=== PATIENT | female | born 1960 | race African-American/Black ===

== ENCOUNTER 2017-01-06 18:03 | Inpatient (IN) | payer MEDICAID, OTHER ==
[~2017-01-06] VITALS: Ht 180.3 cm; Wt 176.9 kg
[~2017-01-06 18:03] MED LIST: ALBUT2 CONTNEB; ASPI325T2 PO; CYCL-289 PO; FURO-145 PO; HYDR1LIQ PO; ISOS30TA28 PO; LEVA0.31 IH; LISI10TA5 PO; MONT10TA22 PO; PANT40SU PO; SIMV20TA2 PO; SOTA80TA26 PO; ZOLP10TA2 PO
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
[2017-01-06] MEDS ORDERED: IV NS 0.9% 1,000 ML ONE ×2 (18:56→19:35)
[2017-01-06] MEDS ORDERED: ONDANSETRON HCL/PF 4 MG/2 ML VIAL ONE (18:56)
[2017-01-06] MEDS ORDERED: IV SET PRIMARY 1 EA INFUS.SET MC ONE ×2 (18:56→19:10)
[2017-01-06] MEDS ORDERED: MORPHINE SULFATE INJ 4 MG/ML DISP.SYRIN ONE (18:56)
[2017-01-06] MEDS ORDERED: VANCOMYCIN 1 GM in IV D5W 250 ML IV ONE (19:00)
[2017-01-06] MEDS ORDERED: IV NS 0.9% 1,000 ML BAG IV ONE ×2 (19:00)
[2017-01-06] MEDS ORDERED: CEFEPIME 1 GM in IV D5W 50 ML IV ONE (19:00)
[2017-01-06] MEDS ORDERED: ONDANSETRON HCL/PF 4 MG/2 ML VIAL IVP ONE (19:00)
[2017-01-06] MEDS ORDERED: BLOOD SUGAR DIAGNOSTIC 1 EACH STRIP IN ONE (19:00)
[2017-01-06] MEDS ORDERED: MORPHINE SULFATE INJ 2 MG/ML DISP.SYRIN IV ONE (19:00)
--- NOTE | 2017-01-06 19:00 | NUR ---
NEW IV STARTED RIGHT HAND, 20 GAUGE.
[2017-01-06 19:03] LABS: BASOPHILS % (AUTO) 0.5 % (0.0-2.0); EOSINOPHILS # (AUTO) 0.2 /CMM (0.0-0.7); EOSINOPHILS % (AUTO) 3.7 % (0.0-6.0); HEMATOCRIT 38 % (33-45); HEMOGLOBIN 11.8 g/dL (11.5-14.8); LYMPHOCYTES # (AUTO) 1.2 /CMM (0.8-4.8); MEAN CORPUSCULAR HEMOGLOBIN 26 PG (26.0-33.0); MEAN CORPUSCULAR HGB CONC 31 g/dl (31.0-36.0); MEAN CORPUSCULAR VOLUME 84 fL (82-100); MONOCYTES # (AUTO) 0.7 /CMM (0.1-1.30); MONOCYTES % (AUTO) 10.4 % (2.0-12.0); NEUTROPHILS # (AUTO) 4.6 /CMM (1.8-8.9); NEUTROPHILS % (AUTO) 67.4 % (43.0-81.0); PLATELET COUNT (AUTO) 227 /CMM (150-450); RDW COEFFICIENT OF VARIATION 14.4 (11.5-15.0); RED BLOOD CELL COUNT(AUTO) 4.49 MIL/uL (4.0-5.2); WHITE BLOOD COUNT (AUTO) 6.7 K/uL (4.3-11.0)
[2017-01-06 19:14] LABS: CALCIUM, SERUM 9.9 mg/dL (8.5-10.1); CARBON DIOXIDE 29 mmol/L (21-32); CHLORIDE 103 mmol/L (98-107); CREATININE 1.8 mg/dL (0.6-1.3); GLUCOSE 146 mg/dL (74-106); POTASSIUM 4.5 mmol/L (3.5-5.1); SODIUM SERUM 140 mmol/L (136-145); UREA NITROGEN, BLOOD 25 mg/dL (7-18)
--- NOTE | 2017-01-06 19:15 | NUR ---
MEDICATED PATIENT PER MD ORDERS.
[2017-01-06] MEDS ORDERED: IV SET PRIMARY PUMP SET 1 EA INFUS.SET MC ONE (19:17)
[2017-01-06 19:18] LABS: INR 0.94 (0.87-1.13); PROTHROMBIN TIME 9.8 SECS (9.5-12.7)
[2017-01-06 19:20] LABS: ALANINE AMINOTRANSFERASE 21 U/L (12-78); ALBUMIN 3.5 g/dL (3.4-5.0); ALKALINE PHOSPHATASE 83 U/L (46-116); ASPARTATE AMINOTRANSFERASE 34 U/L (15-37); BILIRUBIN,DIRECT 0.1 mg/dL (0.0-0.2); BILIRUBIN,TOTAL 0.5 mg/dL (0.2-1.0); TOTAL PROTEIN, SERUM 7.9 g/dL (6.4-8.2)
[2017-01-06 19:21] LABS: TROPONIN I < 0.017 ng/mL (0.00-0.056)
--- NOTE | 2017-01-06 20:21 | NUR ---
CALLED 'S OFFICE, HE IS ON VACATION, GIVE PT TO [facility] PER HIS ANSWERING SERVICE
--- NOTE | 2017-01-06 20:29 | NUR ---
DR.RUTHERFORD MARY ALICE A OPERATOR
[2017-01-06] MEDS ORDERED: HYDROCODONE/APAP 5/325MG 1 EACH TABLET ONE (20:56)
[2017-01-06] MEDS ORDERED: HYDROCODONE/APAP 5/325MG 1 EACH TABLET PO ONE (21:00)
--- NOTE | 2017-01-06 21:11 | NUR ---
REPORT GIVEN TO YASIR TO FOR BED 201 M/S
--- NOTE | 2017-01-06 21:33 | NUR ---
PT TRANSFERED TO M/S 201 VIA STRETCHER IN STABLE CONDITION.
[2017-01-06 21:35] VITALS: BP 130/82
[2017-01-06 22:00] VITALS: BP 130/82
[2017-01-06] MEDS ORDERED: HYDROCODONE/APAP 5/325MG 1 EACH TABLET PO PRN (22:00)
[2017-01-06] MEDS ORDERED: ZOLPIDEM TARTRATE 5 MG TABLET PO PRN (22:00)
[2017-01-06] MEDS ORDERED: ACETAMINOPHEN 325 MG TABLET PO PRN (22:00)
[2017-01-06] MEDS ORDERED: ALBUTEROL FS 2.5 MG/3 ML VIAL.NEB CONTNEB PRN (22:00)
[2017-01-06] MEDS ORDERED: MAGNESIUM HYDROXIDE 30 ML UDC PO PRN (22:00)
[2017-01-06] MEDS ORDERED: MAG HYDROX/AL HYDROX/SIMETH 30 ML UDC PO PRN (22:00)
--- NOTE | 2017-01-06 22:00 | NUR ---
RN NOTE; ADMITTED A 56Y/O, F, A, OX3. BREATHING EVENLY. VS:WNL. AFEBRILE. ON O2 AT 2LPM VIA NC TOLERATED WELL. SKIN WARM AND DRY. W/ MULTIPLE SKIN LESIONS ON THE ARM AND ABD. TO NOTIFY WOUND CASH MANAGER. W/ C/O MILD PAIN OR LLE AND LUE. MEDICAL INFO WAS PROVIDED BY THE PT HOWEVER NEEDED A LOT OF REDIRECTION . SKIN CHECK WAS DONE PARTIALLY SINCE PT REFUSED AND NOT COOPERATIVE. PT ALSO REFUSED PICTURE TAKING ON SOME OF THE SKIN PROBLEMS. NEEDS ATTENDED. ASSISTED W/ ADLS. CALL LIGHT WITHIN REACH. WILL CONT TO MONITOR AND WILL F/U W/ MD's ORDERS.
[2017-01-06] MEDS ORDERED: ENOXAPARIN SODIUM 40 MG/0.4 ML DISP.SYRIN SQ ONE (22:39)
[2017-01-06] MEDS ORDERED: ZOLPIDEM TARTRATE 10 MG TABLET ONE (22:40)
[2017-01-06] MEDS: ENOXAPARIN SODIUM 40 MG/0.4 ML DISP.SYRIN SQ SCH (22:45)
[2017-01-06] MEDS: ZOLPIDEM TARTRATE 10 MG TABLET PO PRN (22:45)
--- NOTE | 2017-01-06 22:45 | NUR ---
WISAMIEN GIVEN ORDERED FOR C/O INSOMNIA. WILL CONT TO MONITOR.
--- NOTE | 2017-01-07 00:30 | NUR ---
pt was seen and examined by dr. Dickson.
[2017-01-07] MEDS ORDERED: HYDROMORPHONE INJ 2 MG/ML DISP.SYRIN ONE (05:21)
[2017-01-07] MEDS: HYDROMORPHONE INJ 2 MG/ML DISP.SYRIN IV PRN ×3 (05:26→20:17)
--- NOTE | 2017-01-07 05:30 | NUR ---
DILAUDID GIVEN FOR C/O SEVERE BLEs PAIN. PT W/ CONSTANTLY PICKING ON HER OLS SX SITE ON THE R KNEE. PT WAS EDUCATED TO NOT TO TOUCH THE AREA AND LET IT HEAL AND AREA WAS COVERED W/ DRY DRESSING TO PREVENT FURTHER MANIPULATION OF THE AREA. WILL WAIT FOR WOUND CARE CONSULT.
--- NOTE | 2017-01-07 06:08 | NUR ---
RN NOTE; PT SITTING AT THE EDGE OF THE BED. BREATHING EVENLY. NO SOB. NO DISTRESS. SKIN WARM AND DRY. REPORTED RELIEF OF PAIN W/ DILAUDID. NO ACUTE EVENT SINCE PT WAS ADMITTED ON THE FLOOR. NEEDS ATTENDED. CALL LIGHT WITHIN REACH. WILL CONT TO MONITOR AND WILL ENDORSE TO AM SHIFT FOR HENRY.
--- NOTE | 2017-01-07 07:00 | NUR ---
MS RN OPENING RECEIVED PATIENT A/OX4 DENIES SOB, DIFFICULTY BREATHING AND CONSTANT PAIN IN LEGS WHICH PRN MEDICATIONS HELPING. PATIENT STATES SHE WANTS MEDICATIONS FOR SKIN, NOTIFIED WOUND EVAL RN WILL BE BY TODAY TO RECCOMMEND TREATMENT. PATIENT APPEARS STABLE AT THIS TIME. CALL LIGHT IN REACH, BED LOWERED AND LOCKED, RAILS UPX3 FOR SAFETY AND WILL ROUND Q2H OR LESS PER NEEDS.
[2017-01-07 07:36] LABS: BASOPHILS % (AUTO) 0.2 % (0.0-2.0); EOSINOPHILS # (AUTO) 0.2 /CMM (0.0-0.7); EOSINOPHILS % (AUTO) 4.4 % (0.0-6.0); HEMATOCRIT 33 % (33-45); HEMOGLOBIN 10.7 g/dL (11.5-14.8); LYMPHOCYTES # (AUTO) 1.2 /CMM (0.8-4.8); LYMPHOCYTES % (AUTO) 23.7 % (20.0-44.0); MEAN CORPUSCULAR HEMOGLOBIN 27 PG (26.0-33.0); MEAN CORPUSCULAR HGB CONC 32 g/dl (31.0-36.0); MEAN CORPUSCULAR VOLUME 84 fL (82-100); MONOCYTES # (AUTO) 0.6 /CMM (0.1-1.30); MONOCYTES % (AUTO) 12.9 % (2.0-12.0); NEUTROPHILS # (AUTO) 2.9 /CMM (1.8-8.9); NEUTROPHILS % (AUTO) 58.8 % (43.0-81.0); PLATELET COUNT (AUTO) 201 /CMM (150-450); RDW COEFFICIENT OF VARIATION 15.4 (11.5-15.0); RED BLOOD CELL COUNT(AUTO) 3.99 MIL/uL (4.0-5.2); WHITE BLOOD COUNT (AUTO) 4.9 K/uL (4.3-11.0)
[2017-01-07 07:58] LABS: CREATININE 1.3 mg/dL (0.6-1.3); MAGNESIUM 1.7 mg/dL (1.8-2.4); PHOSPHORUS 4.2 mg/dL (2.5-4.9); POTASSIUM 4.2 mmol/L (3.5-5.1)
[2017-01-07 08:00] VITALS: BP 114/63
[2017-01-07] MEDS: LISINOPRIL (10MG) 10 MG TABLET PO SCH (08:08)
[2017-01-07] MEDS: ISOSORBIDE MONONITRATE (30MG) 30 MG TAB.SR.24H PO SCH (08:08)
[2017-01-07] MEDS: SOTALOL HCL 80 MG TABLET PO SCH (08:08)
[2017-01-07] MEDS: FUROSEMIDE 20 MG TABLET PO SCH (08:37)
[2017-01-07] MEDS: ASPIRIN 325 MG TABLET PO SCH (08:38)
[2017-01-07] MEDS: PANTOPRAZOLE 40 MG TABLET.DR PO SCH (08:38)
[2017-01-07] MEDS: SIMVASTATIN 20 MG TABLET PO SCH (08:38)
[2017-01-07] MEDS: CYCLOBENZAPRINE 10 MG TABLET PO SCH (08:38)
[2017-01-07] MEDS: MONTELUKAST SODIUM (10MG) 10 MG TABLET PO SCH (08:38)
[2017-01-07] MEDS ORDERED: ZOLPIDEM TARTRATE 10 MG TABLET PO SCH (09:00)
[2017-01-07] MEDS ORDERED: PANTOPRAZOLE 40 MG/PACK PACK PO SCH (09:00)
--- NOTE | 2017-01-07 10:28 | NUR ---
WOUND CARE CONSULT: PT IS AMBULATORY AND CONTINENT. PT PRESENTS WITH LEFT ARM ESCHARS AND LEFT KNEE SCAR WHICH HAS OPEN WOUND, AND GLUTEAL CREASE EXCORIATION, PRESENT ON ADMISSION. PT IS MORBIDLY OBESE. RECOMMEND SURGICAL CONSULT. ALL SKIN AND WOUND RECOMMENDATIONS DISCUSSED WITH NURSING STAFF. MD IN AGREEMENT WITH PLAN OF CARE.
--- NOTE | 2017-01-07 10:30 | NUR ---
MS RN NOTES PATIENT PULLED OUT IV. SHE STATED IT WAS "BUGGING HER".. PRESSURE AND DRESSING APPLIED NO BLEEDING. EDUCATED PATIENT AGAIN TO NOT PULL AT IV'S. PASSIVE LISTENING
--- NOTE | 2017-01-07 10:33 | NUR ---
MS RN NOTES CALLED [facility] TO HELP RAISE OVER TOILET FOR PATIENT. PATIENT SITTING UP IN CHAIR AT THIS TIME
[2017-01-07] MEDS ORDERED: NEOMY SULF/BACITRAC ZN/POLY 15 GM TUBE TP SCH (11:00)
--- NOTE | 2017-01-07 11:00 | NUR ---
MS COOLEY NOTES TOOK WOUND CULTURE ON LEFT KNEE. READY FOR LAB HIGHER EDUCATION ADMINISTRATOR Addendum: 01/07/17 at 1101 by KIMMIE DORADO RN PATIENT AWARE NEEDING URINE SAMPLE.
--- NOTE | 2017-01-07 11:10 | NUR ---
RN NOTES DR BHARGAVI MOREL AT BEDSIDE. NOTIFIED PATIENT IS DIABETIC. ORDER ACHS MILD SLIDING SCALE. AND OK TO RESUME PO DIABETIC MEDICATIONS TAKING AT HOME. WILL F.U WITH PATIENT Addendum: 01/07/17 at 1116 by KIMMIE DORADO RN PER MD ADAN TO ORDER DR AYLEEN JOSE CONSULT FOR PATIENT
--- NOTE | 2017-01-07 11:16 | NUR ---
RN NOTES MESSAGE TO DR ABBASI OFFICE TO NOTIFY OF CONSULT
--- NOTE | 2017-01-07 11:25 | NUR ---
MS RN NOTES YENI VILLATORO AT BEDSIDE FOR CONSULT
[2017-01-07] MEDS ORDERED: SITAGLIPTIN PHOSPHATE 50 MG TABLET PO SCH (11:30)
[2017-01-07] MEDS ORDERED: DEXTROSE 50%-WATER 50 ML DISP.SYRIN IV PRN (11:30)
[2017-01-07] MEDS ORDERED: SECONDARY IV SET 1 EA INFUS.SET MC ONE ×2 (11:48→16:43)
[2017-01-07] MEDS: BLOOD SUGAR DIAGNOSTIC 1 EACH STRIP IN SCH ×3 (11:49→21:09)
[2017-01-07] MEDS: Magnesium 1GM/D5W 100ML PREMIX 100 ML IV SCH ×2 (11:52→13:06)
[2017-01-07] MEDS ORDERED: IV SET PRIMARY PUMP SET 1 EA INFUS.SET MC ONE (11:53)
[2017-01-07] MEDS ORDERED: IV NS 0.9% 250 ML IV ONE (11:53)
[2017-01-07] MEDS ORDERED: FEE PK DOSING 1 MIN EA MC ONE (12:03)
[2017-01-07] MEDS: LINAGLIPTIN 5 MG TABLET PO SCH (12:04)
--- NOTE | 2017-01-07 12:17 | NUR ---
MS RN NOTES PER PATIENT SHE TAKES PROZAC 40MG DAILY. NOTIFIED MD BURK
--- NOTE | 2017-01-07 12:17 | NUR ---
Social service consult requested by patient. Pt. was admitted to [facility] for cellulitis. [facility] met with pt. bedside. Pt. is alert and oriented x4. Pt. appeared hostile initially when speaking to SW, however became less hostile as the assessment continued. Pt. has section 8 and lives in section 8 housing located at [address] [place] [address], [address]. Pt. stated she does not want to live in that building anymore due to safety concerns and has been looking for section 8 vacancies for quite a while. SW informed pt. she can provide her a list of section 8 vacancies. Pt. was appreciative. Pt. states she is depressed and takes 40 mg of Prozac daily. SW inquired with pt. if she speaks to her son Yayo. Pt. got upset and made obscenities about her son saying he was rude to her and made obscene statements to her. Pt informed SW she has a tendency to forget stuff. Pt. denies feeling suicidal/homicidal ideations and visual/auditory hallucinations at this time. [employer] gave pt. list of current Section 8 vacancies that included vacancies in [place], [place] and [place]. [employer]N also gave pt. the website to [employer] ([employer]).
--- NOTE | 2017-01-07 12:28 | NUR ---
MS RN NOTES PER PATIENT SHE TAKES PROZAC 40MG DAILY. PER MD BHARGAVI ADAN TO ORDER MEDICATION FOR PATIENT.
[2017-01-07] MEDS: INSULIN REGULAR, HUMAN 100 UNIT/ML 3 ML VIAL SQ PRN (13:07)
[2017-01-07] MEDS: Z GUARD REMEDY 2 OZ OINT TP PRN (13:08)
[2017-01-07] MEDS: SILVER SULFADIAZINE CREAM 25 GM TUBE TP SCH (15:48)
[2017-01-07 16:00] VITALS: BP 122/73
[2017-01-07] MEDS: METFORMIN 500 MG TABLET PO SCH (16:57)
[2017-01-07] MEDS: VANCOMYCIN 1.5 GM in IV D5W 500 ML IV SCH (16:57)
--- NOTE | 2017-01-07 18:33 | NUR ---
MS RN CLOSING PATIENT STABLE NO COMPLICATIONS NO CHANGES. WOUND CARE COMPLETED ORDERED AND PRN. ALL DUE MEDS GIVEN AND ALL NEEDS MET PATIENT STATES NO NEEDS AT THIS TIME. CALL LIGHT IN REACH, BED LOWERED AND LOCKED, RAILS UPX3 FOR SAFETY. PAIN MANAGED WITH PRN MEDICATIONS AND NON PHARM MEASURMENTS. PATIENT SLEEPING EASILY AWOKEN BY NAME. WILL ENDORSE CARE TO YASIR TO FOR HENRY
--- NOTE | 2017-01-07 19:20 | NUR ---
RN NOTE; RECEIVED PT IN BED AWAKE AND ALERT, BREATHING EVENLY. NO SOB. NO DISTRESS .SKIN WARM AND DRY. NO C/O PAIN OR DISCOMFORT. NEEDS ATTENDED. CALL LIGHT WITHIN REACH, WILL CONT TO MONITOR
[2017-01-07 20:00] VITALS: BP 142/92
--- NOTE | 2017-01-07 20:20 | NUR ---
DILAUDID GIVEN FOR C/O SEVERE LLE, LUE PAIN. WILL CONT TO MONITOR
[2017-01-07] MEDS: ENOXAPARIN SODIUM 40 MG/0.4 ML DISP.SYRIN SQ SCH (21:12)
[2017-01-07] MEDS: ZOLPIDEM TARTRATE 10 MG TABLET PO PRN (21:51)
--- NOTE | 2017-01-07 21:52 | NUR ---
MICHAEL GIVEN PER PT'S REQUEST FOR C/O INSOMNIA. WILL CONT TO MONITOR
[2017-01-08] MEDS: HYDROMORPHONE INJ 2 MG/ML DISP.SYRIN IV PRN ×5 (01:49→21:30)
--- NOTE | 2017-01-08 01:50 | NUR ---
DILAUDID GIVEN FOR C/O SEVERE BLE PAIN. WILL CONT TO MONITOR
--- NOTE | 2017-01-08 06:30 | NUR ---
RN NOTE; PT IN BED AWAKE AND ALERT. BREATHING EVENLY. NO SOB. NO DISTRESS. PAIN MEDICATION GIVEN ORDERED PER PT'S REQUEST. NEEDS ATTENDED. ASSISTED W/ ADLS. CALL LIGHT WITHIN REACH. WILL CONT TO MONITOR AND WILL ENDORSE TO AM SHIFT FOR HENRY.
[2017-01-08] MEDS: BLOOD SUGAR DIAGNOSTIC 1 EACH STRIP IN SCH ×4 (06:47→21:30)
--- NOTE | 2017-01-08 06:52 | NUR ---
DILAUDID GIVEN FOR C/O SEVERE BLE PAIN. WILL CONT TO MONITOR
--- NOTE | 2017-01-08 07:00 | NUR ---
MS RN NOTES PER REPORT FROM RN PATIENT DID NOT SLEEP AT ALL, PATIENT WAS PULLING OFF BANDAGES THROUGHOUT THE NIGHT AND REOPENING SCABS. WE WENT INTO THE ROOM PATIENT HAD ALREADY REMOVED DRESSING ZULEIKA COMPLETED NOT EVEN AN HOUR PRIOR. PATIENT IS MUMBLING UNDER HER BREATH AND WHEN ASKED WHAT SHE SAID SHE SAYS "OH WELL GOTTA GET VITALS ON ME SO I CAN PEDRO" PATIENT APPEARS ANXIOUS AND DISTRACTIBLE. PSYCH CONSULT ADDED AND FACE SHEET SENT TO [employer] FOR CONSULT. CALLED [employer] THEY RECEIVED FACE SHEET AND DEMARIO VIEYRA IS MANAGER RETAIL
[2017-01-08 07:28] LABS: BASOPHILS % (AUTO) 0.6 % (0.0-2.0); EOSINOPHILS # (AUTO) 0.3 /CMM (0.0-0.7); EOSINOPHILS % (AUTO) 5.3 % (0.0-6.0); HEMATOCRIT 36 % (33-45); HEMOGLOBIN 11.5 g/dL (11.5-14.8); LYMPHOCYTES # (AUTO) 1.1 /CMM (0.8-4.8); MEAN CORPUSCULAR HEMOGLOBIN 27 PG (26.0-33.0); MEAN CORPUSCULAR HGB CONC 32 g/dl (31.0-36.0); MEAN CORPUSCULAR VOLUME 83 fL (82-100); MONOCYTES # (AUTO) 0.6 /CMM (0.1-1.30); MONOCYTES % (AUTO) 10.6 % (2.0-12.0); NEUTROPHILS # (AUTO) 3.3 /CMM (1.8-8.9); NEUTROPHILS % (AUTO) 62.5 % (43.0-81.0); PLATELET COUNT (AUTO) 215 /CMM (150-450); RDW COEFFICIENT OF VARIATION 15.2 (11.5-15.0); RED BLOOD CELL COUNT(AUTO) 4.28 MIL/uL (4.0-5.2); WHITE BLOOD COUNT (AUTO) 5.3 K/uL (4.3-11.0)
[2017-01-08 08:00] VITALS: BP 125/95
[2017-01-08] MEDS: LINAGLIPTIN 5 MG TABLET PO SCH (08:05)
[2017-01-08] MEDS: FLUOXETINE HCL 20 MG CAPSULE PO SCH (08:05)
[2017-01-08] MEDS: FUROSEMIDE 20 MG TABLET PO SCH (08:05)
[2017-01-08] MEDS: LISINOPRIL (10MG) 10 MG TABLET PO SCH (08:05)
[2017-01-08] MEDS: SOTALOL HCL 80 MG TABLET PO SCH (08:05)
[2017-01-08] MEDS: CYCLOBENZAPRINE 10 MG TABLET PO SCH (08:05)
[2017-01-08] MEDS: PANTOPRAZOLE 40 MG TABLET.DR PO SCH (08:05)
[2017-01-08] MEDS: ASPIRIN 325 MG TABLET PO SCH (08:06)
[2017-01-08] MEDS: METFORMIN 500 MG TABLET PO SCH ×2 (08:06→17:09)
[2017-01-08] MEDS: MONTELUKAST SODIUM (10MG) 10 MG TABLET PO SCH (08:06)
[2017-01-08] MEDS: SIMVASTATIN 20 MG TABLET PO SCH (08:06)
[2017-01-08] MEDS: Z GUARD REMEDY 2 OZ OINT TP PRN ×2 (08:06→11:12)
[2017-01-08] MEDS: SILVER SULFADIAZINE CREAM 25 GM TUBE TP SCH (08:09)
[2017-01-08] MEDS: ISOSORBIDE MONONITRATE (30MG) 30 MG TAB.SR.24H PO SCH (09:00)
[2017-01-08 09:03] LABS: MAGNESIUM 1.8 mg/dL (1.8-2.4)
--- NOTE | 2017-01-08 10:30 | NUR ---
MS RN NOTES URINE COLLECTED AND SENT FOR LAB HIGH SCHOOL BUSINESS TEACHER. REORDERED UA AND URINE CULTURE THEY WERE AUTO CANCELLED FROM NOT BEING COLLECTED
[2017-01-08] MEDS: INSULIN REGULAR, HUMAN 100 UNIT/ML 3 ML VIAL SQ PRN ×2 (11:11→21:54)
[2017-01-08 11:18] LABS: APPEARANCE,URINE CLEAR (CLEAR); BILIRUBIN,URINE NEGATIVE (NEGATIVE); BLOOD, URINE NEGATIVE Ery/uL (NEGATIVE); COLOR,URINE YELLOW (YELLOW); KETONES,URINE NEGATIVE (NEGATIVE); LEUKOCYTE ESTERASE ,URINE NEGATIVE (NEGATIVE); NITRITE, URINE NEGATIVE (NEGATIVE); PH,URINE 6.5 (5.0-8.0); PROTEIN,URINE NEGATIVE (NEGATIVE); UGLUCOSE NEGATIVE (NEGATIVE); UROBILINOGEN,URINE 0.2 EU/dL (0.2)
--- NOTE | 2017-01-08 13:00 | NUR ---
MS RN NOTES DR HANKS AT BEDSIDE
[2017-01-08] MEDS ORDERED: DULOXETINE HCL 30 MG CAPSULE.DR PO SCH (13:30)
[2017-01-08 16:00] VITALS: BP 118/71
[2017-01-08] MEDS: VANCOMYCIN 1.5 GM in IV D5W 500 ML IV SCH (17:08)
--- NOTE | 2017-01-08 18:31 | NUR ---
MS RN CLOSING PATIENT STABLE NO COMPLICATIONS NO CHANGES. WOUND CARE COMPLETED ORDERED AND PRN. ALL DUE MEDS GIVEN AND ALL NEEDS MET PATIENT STATES NO NEEDS AT THIS TIME. CALL LIGHT IN REACH, BED LOWERED AND LOCKED, RAILS UPX3 FOR SAFETY. PAIN MANAGED WITH PRN MEDICATIONS AND NON PHARM MEASUREMENTS. PATIENT SLEEPING EASILY AWOKEN BY NAME. WILL ENDORSE CARE TO RN FOR HENRY
--- NOTE | 2017-01-08 19:40 | NUR ---
RN INITIAL NOTES: RECEIVED REPORT FROM KIMMIE COOLEY P[T IN BED, AWAKE, A/O X3, ON ROOM AIR RESPIRATION EVEN AND UNLABORED, PT C/O 02/19 GENERALIZED PAIN INFORMED PT HER NEXT PAIN MEDICATION WILL BE DUE AT 2129, PT AGREE, STATED SHE'S WILLING TO WAIT, AFTERWARDS HER FRIEND CAME IN TO VISIT, PT HAS RIGHT HAND G 22 IV PATENT AND FLUSHING WELL, ON HL. SAFETY PRECAUTIONS FOR FALL INITIATED CALL LIGHT IN REACH, BED SIDE COMMODE CLOSER TO THE BED, WILL CONTINUE TO MONITOR
[2017-01-08 20:00] VITALS: BP 152/89
[2017-01-08] MEDS: ENOXAPARIN SODIUM 40 MG/0.4 ML DISP.SYRIN SQ SCH (21:38)
--- NOTE | 2017-01-08 21:38 | NUR ---
PRN DILAUDID: PT C/O 02/19 GENERALIZED PAIN REQUESTING FOR HER DILAUDID, PRN DILAUDID 2MG IVP ADMINISTERED TO THE PT AT THIS TIME, EDUCATE PT REGARDING MEDICATION SIDE EFFECT, ALSO CHECKED PT'S BLOOD SUGAR AND REVEAL 127, NO INSULIN COVERAGE GIVEN PER SLIDING SCALE, WILL MONITOR AND REASSESS
[2017-01-09] MEDS: HYDROMORPHONE INJ 2 MG/ML DISP.SYRIN IV PRN ×4 (01:31→14:02)
--- NOTE | 2017-01-09 01:31 | NUR ---
PRN DILAUDID: PT C/O PAIN GENERALIZED 02/19 REQUESTING FOR DILAUDID, PRN DILAUDID 2MG IVP ADMINISTERED TO THE PT AT THIS TIME, WILL CONTINUE TO MONITOR AND REASSESS
[2017-01-09] MEDS: ONDANSETRON HCL/PF 4 MG/2 ML VIAL IVP PRN ×2 (01:39→10:00)
--- NOTE | 2017-01-09 01:39 | NUR ---
PRN ZOFRAN: PRN ZOFRAN ADMINISTERED TO THE PT FOR VOMITING, PT VOMITED 20CC, WILL CONTINUE TO MONITOR AND REASSESS
--- NOTE | 2017-01-09 02:04 | NUR ---
RN NOTES: FOUND PT'S MEDICATION BOTTLE (GABAPENTIN PILLS), INFORMED PT THAT THIS PILLS CANNOT BE KEEP AT BED SIDE FOR SAFETY PURPOSES, PT REFUSED TO GIVE HER BOTTLE OF MEDICATION, STATED SHE IS GOING HOME TOMORROW AND THAT SHE PROMISE NOT TO TAKE HER PILLS,
[2017-01-09] MEDS: BLOOD SUGAR DIAGNOSTIC 1 EACH STRIP IN SCH ×2 (06:00→11:54)
[2017-01-09] MEDS: INSULIN REGULAR, HUMAN 100 UNIT/ML 3 ML VIAL SQ PRN ×2 (06:06→12:11)
--- NOTE | 2017-01-09 06:07 | NUR ---
PRN DILAUDID AND ACCU CHECK: PT C/O LEFT KNEE PAIN 02/19 REQUESTING FOR DILAUDID, PRN DILAUDID 2MG IVP ADMINISTERED TO THE PT AT THIS TIME, ALSO BLOOD SUGAR CHECKED AND OBTAINED 149, WITH 2UNITS OF INSULIN GIVEN PER SLIDING SCALE COVERAGE, WILL CONTINUE TO MONITOR AND REASSESS
--- NOTE | 2017-01-09 06:39 | NUR ---
RN CLOSING NOTES: PT IN BED, AWAKE, LAST PAIN MEDS GIVEN AT 0606AM, PT STILL REFUSED TO PLACE GAUZE AND KERLIX ON LEFT KNEE WOUND, SHE INSISTED TO LEAVE IT OPEN TO AIR, DESPITE EDUCATING THE PT. RIGHT HAND IV ACCESS REMAINS PATENT AND FLUSHING WELL, ON HL. NO S/S OF REDNESS OR INFILTRATION NOTED. FOR POSSIBLE DC TODAY, EXIT CARE COMPLETED, VS REMAINS STABLE, NEEDS ATTENDED, SAFETY PRECAUTIONS FOR FALL REMAINS ENGAGED, CALL LIGHT IN REACH, WILL ENDORSE TO DAY RN FOR HENRY.
--- NOTE | 2017-01-09 07:30 | NUR ---
RN MS NOTES PATIENT IN BED, ASLEEP BUT EASILY AROUSABLE, DENIES PAIN AT THIS TIME, NO SOB NOR DISTRESS NOTED, KEPT PATIENT COMFORTABLE, ENSURE SAFETY, ALL NEEDS ATTENDED, CALL LIGHT WITHIN REACH, WILL CONTINUE TO MONITOR.
[2017-01-09 07:41] LABS: EOSINOPHILS # (AUTO) 0.3 /CMM (0.0-0.7); EOSINOPHILS % (AUTO) 4.3 % (0.0-6.0); HEMATOCRIT 36 % (33-45); HEMOGLOBIN 11.6 g/dL (11.5-14.8); LYMPHOCYTES # (AUTO) 1.1 /CMM (0.8-4.8); LYMPHOCYTES % (AUTO) 17.7 % (20.0-44.0); MEAN CORPUSCULAR HEMOGLOBIN 27 PG (26.0-33.0); MEAN CORPUSCULAR HGB CONC 32 g/dl (31.0-36.0); MEAN CORPUSCULAR VOLUME 83 fL (82-100); MONOCYTES # (AUTO) 0.6 /CMM (0.1-1.30); MONOCYTES % (AUTO) 9.1 % (2.0-12.0); NEUTROPHILS # (AUTO) 4.2 /CMM (1.8-8.9); NEUTROPHILS % (AUTO) 68.9 % (43.0-81.0); PLATELET COUNT (AUTO) 180 /CMM (150-450); RDW COEFFICIENT OF VARIATION 15.2 (11.5-15.0); RED BLOOD CELL COUNT(AUTO) 4.33 MIL/uL (4.0-5.2); WHITE BLOOD COUNT (AUTO) 6.1 K/uL (4.3-11.0)
[2017-01-09 08:00] VITALS: BP 126/73
[2017-01-09 08:26] LABS: CALCIUM, SERUM 9.1 mg/dL (8.5-10.1); MAGNESIUM 1.6 mg/dL (1.8-2.4); PHOSPHORUS 3.4 mg/dL (2.5-4.9); POTASSIUM 4.3 mmol/L (3.5-5.1)
[2017-01-09] MEDS: ASPIRIN 325 MG TABLET PO SCH (09:13)
[2017-01-09] MEDS: LINAGLIPTIN 5 MG TABLET PO SCH (09:14)
[2017-01-09] MEDS: FUROSEMIDE 20 MG TABLET PO SCH (09:14)
[2017-01-09] MEDS: FLUOXETINE HCL 20 MG CAPSULE PO SCH (09:14)
[2017-01-09] MEDS: LISINOPRIL (10MG) 10 MG TABLET PO SCH (09:14)
[2017-01-09] MEDS: METFORMIN 500 MG TABLET PO SCH (09:14)
[2017-01-09] MEDS: PANTOPRAZOLE 40 MG TABLET.DR PO SCH (09:14)
[2017-01-09] MEDS: MONTELUKAST SODIUM (10MG) 10 MG TABLET PO SCH (09:14)
[2017-01-09] MEDS: ISOSORBIDE MONONITRATE (30MG) 30 MG TAB.SR.24H PO SCH (09:14)
[2017-01-09 09:15] VITALS: BP 126/73
[2017-01-09] MEDS: SILVER SULFADIAZINE CREAM 25 GM TUBE TP SCH (09:15)
[2017-01-09] MEDS: SOTALOL HCL 80 MG TABLET PO SCH (09:15)
[2017-01-09] MEDS: CYCLOBENZAPRINE 10 MG TABLET PO SCH (09:15)
[2017-01-09] MEDS: SIMVASTATIN 20 MG TABLET PO SCH (09:15)
--- NOTE | 2017-01-09 11:13 | NUR ---
Patient experience rep Laisha informed [employer] that patient is in need of housing resources. Per Laisha, patient currently resides in section 8 housing but is looking for a new place to live. SW provided patient with Section 8 Rental Units in [place] [facility] and patient stated she will follow up.
[2017-01-09] MEDS ORDERED: MAGNESIUM OXIDE 400 MG TABLET PO SCH (12:00)
[2017-01-09] MEDS ORDERED: LACTULOSE 10 G/15 ML UDC (PYXIS) PO PRN (13:00)
[2017-01-09] MEDS ORDERED: SENNOSIDES 8.6 MG TABLET PO ONE (13:00)
--- NOTE | 2017-01-09 13:30 | NUR ---
RN MS NOTES WOUND TREATMENT DONE, COVERED WITH GAUZE, PATIENT IS AWARE OF DISCHARGE ORDER FROM DR. LANIER.
--- NOTE | 2017-01-09 15:45 | NUR ---
STOCK RECEIVER NOTE PATIENT ALERT AND ORIENTED, NO DISTRESS NOTED, NO COMPLAINT OF PAIN AT THIS TIME, RECEIVED DISCHARGE INSTRUCTIONS AND VERBALIZED UNDERSTANDING, SIGNED DISCHARGE PAPERWORKS, ALL BELONGINGS RECONCILED, JEWELRY FROM SAFE GIVEN TO THE PATIENT, PIV REMOVED, SKIN ASSESSMENT COMPLETED, PHOTOS TAKEN EXCEPT FOR SACRUM, PATIENT REFUSED TO HAVE SACRUM PHOTO TO BE TAKEN, ALL NEEDS ATTENDED, ASSISTED WITH CHANGING CLOTHES, LEFT THE FACILITY VIA WHEELCHAIR.
== END 2017-01-09 15:45 | disposition home or self-care (01) | DRG 383 ==
LOC: ER 18:05 → MEDSG2 20:52
PROVIDERS: ADMIT Internal Medicine; ATTEND Internal Medicine
DX: L03.115 Cellulitis of right lower limb (principal); E43 Unspecified severe protein-calorie malnutrition; Z68.43 Body mass index [BMI] 50.0-59.9, adult; L03.114 Cellulitis of left upper limb; E11.9 Type 2 diabetes mellitus without complications; I10 Essential (primary) hypertension; E66.01 Morbid (severe) obesity due to excess calories; G47.33 Obstructive sleep apnea (adult) (pediatric); J45.909 Unspecified asthma, uncomplicated; K21.9 Gastro-esophageal reflux disease without esophagitis; Z79.82 Long term (current) use of aspirin; Z79.899 Other long term (current) drug therapy; G89.4 Chronic pain syndrome; L53.8 Other specified erythematous conditions; L91.0 Hypertrophic scar; F32.9 Major depressive disorder, single episode, unspecified; E78.5 Hyperlipidemia, unspecified; L55.1 Sunburn of second degree; W54.0XXA Bitten by dog, initial encounter; Y93.9 Activity, unspecified; Y92.009 Unspecified place in unspecified non-institutional (private) residence as the place of occurrence of the external cause
CPT/HCPCS: 36415; 71010-TC; 80048-TC; 80061-TC; 80076-TC; 81000-TC; 82962-TC; 83605-TC; 83735-TC; 84100-TC; 84484-TC; 85025-TC; 85730-TC; 87040-TC; 87070-TC; 87081-TC; 87086-TC; 87186-TC; A4606; A6253; A6403; J0692; J1170; J1650; J1815; J2270; J2405; J3370; J3475; J7030; J7050; J7060; Z7610

== ENCOUNTER 2017-02-10 22:21 | Emergency (ER) | payer MEDICAID ==
[~2017-02-10] VITALS: Ht 167.6 cm; Wt 104.3 kg
[~2017-02-10 22:21] MED LIST changes: -CYCL-289 PO; -HYDR1LIQ PO
--- NOTE | 2017-02-10 22:35 | NUR ---
TO BED 3 AN AAOX4 57 YO FEMALE BIBRA AND REPORTED "SLIPPED OUT OF WC AND FELL; LOWER BACK PAIN," NAD NOTED, VSS, NONDIAPHORETIC, INITIATED COMFORT MEASURES. AWAITING FOR ER MD GORDON
--- NOTE | 2017-02-10 22:43 | NUR ---
DR MACIAS AT BEDSIDE.
[2017-02-10] MEDS ORDERED: ONDANSETRON 4 MG TAB.RAPDIS PO ONE (23:00)
[2017-02-10] MEDS ORDERED: HYDROMORPHONE 1 MG/1 ML DISP.SYRIN IM ONE (23:00)
--- NOTE | 2017-02-10 23:01 | NUR ---
PATIENT TO CT.
[2017-02-10] MEDS ORDERED: ONDANSETRON 4 MG TAB.RAPDIS ONE (23:10)
[2017-02-10] MEDS ORDERED: HYDROMORPHONE 1 MG/1 ML DISP.SYRIN ONE (23:10)
--- NOTE | 2017-02-10 23:10 | NUR ---
back from ct.
--- NOTE | 2017-02-10 23:16 | NUR ---
medicated patient as ordered.
[2017-02-11 00:13] VITALS: BP 134/80
--- NOTE | 2017-02-11 00:13 | NUR ---
Patient discharged to home in stable condition. Written and verbal after care instructions given. Patient verbalizes understanding of instruction. Patient using walker to ambulate to taxi, no further commplaints.
== END 2017-02-11 00:13 | disposition home or self-care (01) ==
LOC: ER 22:22
DX: M54.5 Low back pain (principal); M25.561 Pain in right knee; F32.9 Major depressive disorder, single episode, unspecified; I10 Essential (primary) hypertension; I48.91 Unspecified atrial fibrillation; K21.9 Gastro-esophageal reflux disease without esophagitis; Z79.82 Long term (current) use of aspirin; Z88.0 Allergy status to penicillin; W07.XXXA Fall from chair, initial encounter; Y92.89 Other specified places as the place of occurrence of the external cause; Y93.89 Activity, other specified; Y99.8 Other external cause status
CPT/HCPCS: 72131-TC; 73564-TC; A4606; J1170; Q0162; Z7610

== ENCOUNTER 2017-05-09 18:03 | Emergency (ER) | payer MEDICAID ==
[~2017-05-09] VITALS: Ht 180.3 cm; Wt 163.3 kg
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
--- NOTE | 2017-05-09 19:00 | NUR ---
assume pt care. resting in bed. c/o 02/19 pain. will ontinue to monitor.
[2017-05-09] MEDS ORDERED: FLUCONAZOLE (100 MG) 100 MG TABLET ONE (21:00)
[2017-05-09] MEDS ORDERED: FLUCONAZOLE (100 MG) 100 MG TABLET PO ONE (21:00)
[2017-05-09] MEDS ORDERED: HYDROMORPHONE INJ 2 MG/ML DISP.SYRIN IM ONE (21:00)
[2017-05-09] MEDS ORDERED: HYDROMORPHONE INJ 2 MG/ML DISP.SYRIN ONE (21:00)
--- NOTE | 2017-05-09 21:14 | NUR ---
accucheck 171 mg/dL seble wray aware.
--- NOTE | 2017-05-09 21:18 | NUR ---
Patient discharged to home in stable condition. Written and verbal after care instructions given. Patient verbalizes understanding of instruction.
[2017-05-09 21:20] VITALS: BP 156/84
== END 2017-05-09 21:21 | disposition home or self-care (01) ==
LOC: ER 18:06
DX: M79.651 Pain in right thigh (principal); M25.561 Pain in right knee; G89.29 Other chronic pain; M54.5 Low back pain; R79.89 Other specified abnormal findings of blood chemistry; F32.9 Major depressive disorder, single episode, unspecified; I48.91 Unspecified atrial fibrillation; I10 Essential (primary) hypertension; K21.9 Gastro-esophageal reflux disease without esophagitis; Z79.82 Long term (current) use of aspirin; Z88.0 Allergy status to penicillin; Z88.1 Allergy status to other antibiotic agents; Z98.890 Other specified postprocedural states
CPT/HCPCS: 82962-TC; 93971-TC; A4606; J1170; Z7610

== ENCOUNTER 2017-09-02 21:40 | Emergency (ER) | payer MEDICAID, OTHER ==
[~2017-09-02] VITALS: Ht 180.3 cm; Wt 165.6 kg
[~2017-09-02 21:40] MED LIST changes: +ASPI-992 PO; -ASPI325T2 PO
--- NOTE | 2017-09-02 21:45 | NUR ---
BIBSELF C/O INTERMITTENT CHEST PRESSURE 8/10 X 1 WEEK, LEFT KNEE AND LEFT FOOT PAIN S/P FALLING OFF THE BED NAD NOTED, VSS, RESP EVEN AND UNLABORED, PT PUT ON MONITOR, WAITING FOR MD GORDON.
[2017-09-02] MEDS ORDERED: HYDROMORPHONE INJ 0.5 MG/0.5 ML SYRINGE ONE ×2 (22:45→23:53)
[2017-09-02] MEDS ORDERED: ONDANSETRON HCL/PF 4 MG/2 ML VIAL ONE (22:45)
[2017-09-02 22:51] LABS: BASOPHILS % (AUTO) 0.3 % (0.0-2.0); EOSINOPHILS # (AUTO) 0.1 /CMM (0.0-0.7); EOSINOPHILS % (AUTO) 1.7 % (0.0-6.0); HEMATOCRIT 34 % (33-45); HEMOGLOBIN 10.8 g/dL (11.5-14.8); LYMPHOCYTES # (AUTO) 1.3 /CMM (0.8-4.8); LYMPHOCYTES % (AUTO) 22.8 % (20.0-44.0); MEAN CORPUSCULAR HEMOGLOBIN 25 PG (26.0-33.0); MEAN CORPUSCULAR HGB CONC 32 g/dl (31.0-36.0); MEAN CORPUSCULAR VOLUME 80 fL (82-100); MONOCYTES # (AUTO) 0.8 /CMM (0.1-1.30); MONOCYTES % (AUTO) 13.9 % (2.0-12.0); NEUTROPHILS # (AUTO) 3.6 /CMM (1.8-8.9); NEUTROPHILS % (AUTO) 61.3 % (43.0-81.0); PLATELET COUNT (AUTO) 282 /CMM (150-450); RDW COEFFICIENT OF VARIATION 15.4 (11.5-15.0); RED BLOOD CELL COUNT(AUTO) 4.27 MIL/uL (4.0-5.2); WHITE BLOOD COUNT (AUTO) 5.8 K/uL (4.3-11.0)
[2017-09-02] MEDS ORDERED: ONDANSETRON HCL/PF 4 MG/2 ML VIAL IV ONE (23:00)
[2017-09-02] MEDS ORDERED: HYDROMORPHONE 1 MG/1 ML DISP.SYRIN IV ONE (23:00)
[2017-09-02 23:01] LABS: CALCIUM, SERUM 9.3 mg/dL (8.5-10.1); CARBON DIOXIDE 28 mmol/L (21-32); CHLORIDE 102 mmol/L (98-107); GLUCOSE 266 mg/dL (74-106); POTASSIUM 4.2 mmol/L (3.5-5.1); SODIUM SERUM 137 mmol/L (136-145); UREA NITROGEN, BLOOD 13 mg/dL (7-18)
[2017-09-02 23:09] LABS: D-DIMER 0.76 mg/L(FEU (0.17-0.50); INR 1.03 (0.87-1.13)
--- NOTE | 2017-09-02 23:09 | NUR ---
REPORT GIVEN TO YASIR LUBIN
--- NOTE | 2017-09-02 23:10 | NUR ---
RADIOLOGY CALLED [facility] ETA ON XRAYS. TBD
[2017-09-02 23:11] LABS: TROPONIN I < 0.017 ng/mL (0.00-0.056)
--- NOTE | 2017-09-02 23:43 | NUR ---
ER MD OLIVIER AT BEDSIDE
--- NOTE | 2017-09-03 00:34 | NUR ---
PT COMFORTABLE IN BED. ALL NEEDS HAVE BEEN MET
[2017-09-03] MEDS ORDERED: HYDROMORPHONE INJ 0.5 MG/0.5 ML SYRINGE ONE ×2 (02:29→04:57)
[2017-09-03] MEDS ORDERED: HYDROMORPHONE 1 MG/1 ML DISP.SYRIN IV ONE ×3 (02:30→05:00)
--- NOTE | 2017-09-03 02:45 | NUR ---
pt accepted to [facility]. room [address] ceja. # for report [phone]
--- NOTE | 2017-09-03 03:12 | NUR ---
REPORT GIVEN TO YASIR DIANE
--- NOTE | 2017-09-03 03:13 | NUR ---
[facility] ETA FOR ALS TRANSPORT IS [id number] REFERENCE # [id number]
--- NOTE | 2017-09-03 03:13 | NUR ---
PT COMFORTABLE IN BED EATING PUDDING AND DRINKING FLUIDS. WILL CONTINUE TO MONITOR FOR ANY CHANGES
--- NOTE | 2017-09-03 05:17 | NUR ---
HELPED PT TO RESTROOM. WILL CONTINUE TO MONITOR FOR ANY CHANGES
--- NOTE | 2017-09-03 06:19 | NUR ---
CALLED YASIR DIANE AT [facility] NURSE TO LET KNOW PT HAS NOT BEEN PICKED UP YET BY [facility]
--- NOTE | 2017-09-03 06:48 | NUR ---
EMT AMBULNDella AT BEDSIDE FOR FASHION DESIGNER
[2017-09-03 06:56] VITALS: BP 120/72
== END 2017-09-03 06:58 | disposition short-term general hospital (02) ==
LOC: ER 21:41
DX: R07.89 Other chest pain (principal); M25.562 Pain in left knee; I10 Essential (primary) hypertension; I48.91 Unspecified atrial fibrillation; J45.909 Unspecified asthma, uncomplicated; K21.9 Gastro-esophageal reflux disease without esophagitis; F32.9 Major depressive disorder, single episode, unspecified; G56.00 Carpal tunnel syndrome, unspecified upper limb; Z96.652 Presence of left artificial knee joint; Z88.0 Allergy status to penicillin; Z88.1 Allergy status to other antibiotic agents; Z79.82 Long term (current) use of aspirin; Z91.81 History of falling; W18.39XA Other fall on same level, initial encounter; X50.1XXA Overexertion from prolonged static or awkward postures, initial encounter; Y93.89 Activity, other specified; Y92.89 Other specified places as the place of occurrence of the external cause; Y99.8 Other external cause status
CPT/HCPCS: 36415; 71045-TC; 73564-TC; 80048-TC; 84484-TC; 85025-TC; 85378-TC; 85730-TC; A4606; J2405; Z7610

== ENCOUNTER 2018-04-05 18:40 | Emergency (ER) | payer OTHER ==
[~2018-04-05] VITALS: Ht 165.1 cm; Wt 74.8 kg
[2018-04-05 18:40] VITALS: BP 134/77
[2018-04-05] MEDS ORDERED: HYDROCODONE/APAP 5/325MG 1 EACH TABLET ONE (19:11)
[2018-04-05] MEDS ORDERED: HYDROCODONE/APAP 5/325MG 1 EACH TABLET PO ONE (19:30)
== END 2018-04-05 21:41 | disposition home or self-care (01) ==
LOC: ER 18:42
DX: S93.691A Other sprain of right foot, initial encounter (principal); S93.692A Other sprain of left foot, initial encounter; R60.0 Localized edema; F11.10 Opioid abuse, uncomplicated; E66.01 Morbid (severe) obesity due to excess calories; J45.909 Unspecified asthma, uncomplicated; I10 Essential (primary) hypertension; I48.91 Unspecified atrial fibrillation; M19.90 Unspecified osteoarthritis, unspecified site; K21.9 Gastro-esophageal reflux disease without esophagitis; F32.9 Major depressive disorder, single episode, unspecified; I82.402 Acute embolism and thrombosis of unspecified deep veins of left lower extremity; Z90.710 Acquired absence of both cervix and uterus; Z96.652 Presence of left artificial knee joint; Z88.0 Allergy status to penicillin; Z88.1 Allergy status to other antibiotic agents; Z79.82 Long term (current) use of aspirin; Z86.711 Personal history of pulmonary embolism; Z76.5 Malingerer [conscious simulation]; V00.811A Fall from moving wheelchair (powered), initial encounter; Y93.02 Activity, running; Y92.89 Other specified places as the place of occurrence of the external cause; Y99.8 Other external cause status
CPT/HCPCS: 73630 ×2; 93971; 99284; A4606; Z7610

== ENCOUNTER 2018-08-10 19:22 | Emergency (ER) | payer MEDICAID, OTHER ==
[~2018-08-10] VITALS: Ht 180.3 cm; Wt 127.0 kg
--- NOTE | 2018-08-10 19:45 | NUR ---
Pt biba for abd pain while at the mall today, denies any pain at this time, states that she is having a panic attack instead for after taking a certain medication twice the prescribed dose. She is A, O/4, but claims to be having a memory loss, able to move her extremities without difficulty, on RA. Does not appear in acute distress at this time. Awaiting to be seen by Dr. Middleton.
--- NOTE | 2018-08-10 19:55 | NUR ---
Seen by Dr. Middleton at BS with order for EKG
--- NOTE | 2018-08-10 20:50 | NUR ---
Pt states she feels beeter, denies any pain, wants to go home
[2018-08-10 21:02] VITALS: BP 40/88
--- NOTE | 2018-08-10 21:04 | NUR ---
Patient discharged to home in stable condition. Written and verbal after care instructions given. Patient verbalizes understanding of instruction.VSS
== END 2018-08-10 21:04 | disposition home or self-care (01) ==
LOC: ER 19:24
DX: T40.2X1A Poisoning by other opioids, accidental (unintentional), initial encounter (principal); I10 Essential (primary) hypertension; I48.91 Unspecified atrial fibrillation; J45.909 Unspecified asthma, uncomplicated; K21.9 Gastro-esophageal reflux disease without esophagitis; G56.00 Carpal tunnel syndrome, unspecified upper limb; F32.9 Major depressive disorder, single episode, unspecified; G89.29 Other chronic pain; E66.9 Obesity, unspecified; F41.9 Anxiety disorder, unspecified; Z68.39 Body mass index [BMI] 39.0-39.9, adult; Z90.710 Acquired absence of both cervix and uterus; Z96.652 Presence of left artificial knee joint; Z88.0 Allergy status to penicillin; Z88.1 Allergy status to other antibiotic agents; Z79.82 Long term (current) use of aspirin; Z79.899 Other long term (current) drug therapy; Z86.718 Personal history of other venous thrombosis and embolism; Y92.89 Other specified places as the place of occurrence of the external cause

== ENCOUNTER 2019-01-11 14:39 | Emergency (ER) | payer MEDICAID, OTHER ==
[~2019-01-11] VITALS: Ht 180.3 cm; Wt 166.0 kg
[2019-01-11 15:34] VITALS: BP 119/84
[2019-01-11] MEDS ORDERED: LORAZEPAM 0.5 MG TABLET ONE (16:13)
[2019-01-11] MEDS ORDERED: HYDROCODONE/APAP 5/325MG 1 EACH TABLET ONE (16:13)
[2019-01-11] MEDS ORDERED: LORAZEPAM 1 MG TABLET PO ONE ×2 (16:30→17:30)
[2019-01-11] MEDS ORDERED: HYDROCODONE/APAP 5/325MG 1 EACH TABLET PO ONE (16:30)
[2019-01-11] MEDS ORDERED: LORAZEPAM 1 MG TABLET ONE (17:39)
--- NOTE | 2019-01-11 17:52 | NUR ---
Patient discharged to home in stable condition. Written and verbal after care instructions given. Patient verbalizes understanding of instruction.
== END 2019-01-11 17:54 | disposition home or self-care (01) ==
LOC: ER 14:39
DX: M79.671 Pain in right foot (principal); G89.29 Other chronic pain; F41.9 Anxiety disorder, unspecified; R60.0 Localized edema; F32.9 Major depressive disorder, single episode, unspecified; E66.9 Obesity, unspecified; I10 Essential (primary) hypertension; I48.91 Unspecified atrial fibrillation; K21.9 Gastro-esophageal reflux disease without esophagitis; J44.9 Chronic obstructive pulmonary disease, unspecified; Z90.710 Acquired absence of both cervix and uterus; Z88.0 Allergy status to penicillin; Z88.1 Allergy status to other antibiotic agents; Z79.82 Long term (current) use of aspirin; Z96.652 Presence of left artificial knee joint; Z86.718 Personal history of other venous thrombosis and embolism; Z98.890 Other specified postprocedural states
CPT/HCPCS: 73630-TC

== ENCOUNTER 2019-02-28 19:02 | Emergency (ER) | payer OTHER ==
[~2019-02-28] VITALS: Ht 180.3 cm; Wt 166.5 kg
--- NOTE | 2019-02-28 19:34 | NUR ---
BIBSELF ON A ELECTRIC WHEELCHAIR OPERATED BY THE PT HERSELF. TO ER BED 11. AAOX4. NO RESP DISTRESS, BREATHING EVEN AND UNLABORED. C/O BILAT KNEE PAIN AND L SHOULDER PAIN S/P FALL LAST NIGHT. PT REPORTS PAIN 04/21. DENIES HEAD TRAUMA. NOTED VISUAL INJURY. MD AT BEDSIDE. AWAITING ORDERS.
--- NOTE | 2019-02-28 19:41 | NUR ---
XRAY AT BEDSIDE
[2019-02-28] MEDS ORDERED: KETOROLAC TROMETHAMINE INJ 30 MG/ML VIAL ONE (20:28)
[2019-02-28] MEDS ORDERED: KETOROLAC TROMETHAMINE INJ 60 MG/2 ML VIAL IM ONE (20:30)
--- NOTE | 2019-02-28 20:40 | NUR ---
Patient discharged to home in stable condition. Written and verbal after care instructions given. Patient verbalizes understanding of instruction.
[2019-02-28 20:44] VITALS: BP 143/98
== END 2019-02-28 21:00 | disposition home or self-care (01) ==
LOC: ER 19:04
DX: S83.8X2A Sprain of other specified parts of left knee, initial encounter (principal); S83.8X1A Sprain of other specified parts of right knee, initial encounter; S40.012A Contusion of left shoulder, initial encounter; I10 Essential (primary) hypertension; I48.91 Unspecified atrial fibrillation; K21.9 Gastro-esophageal reflux disease without esophagitis; F32.9 Major depressive disorder, single episode, unspecified; J44.9 Chronic obstructive pulmonary disease, unspecified; G89.29 Other chronic pain; E66.9 Obesity, unspecified; Z86.718 Personal history of other venous thrombosis and embolism; Z90.710 Acquired absence of both cervix and uterus; Z88.0 Allergy status to penicillin; Z88.1 Allergy status to other antibiotic agents; Z79.82 Long term (current) use of aspirin; Z96.652 Presence of left artificial knee joint; W01.0XXA Fall on same level from slipping, tripping and stumbling without subsequent striking against object, initial encounter; Y93.89 Activity, other specified; Y92.89 Other specified places as the place of occurrence of the external cause; Y99.8 Other external cause status
CPT/HCPCS: 73030; 73560 ×2; 96372; 99283; J1885

== ENCOUNTER → 2019-04-08 | Emergency (ER) | payer OTHER ==
[~2019-04-08] VITALS: Ht 180.3 cm; Wt 181.4 kg
[~2019-04-08] MED LIST changes: +HYDROCODONE/APAP 5/325MG 1 EACH TABLET ONE; +HYDROCODONE/APAP 5/325MG 1 EACH TABLET PO ONE
[2019-04-08 15:24] LABS: BASOPHILS % (AUTO) 0.4 % (0.0-2.0); EOSINOPHILS % (AUTO) 1.2 % (0.0-6.0); HEMATOCRIT 39 % (33-45); HEMOGLOBIN 12.8 g/dL (11.5-14.8); LYMPHOCYTES # (AUTO) 0.8 /CMM (0.8-4.8); LYMPHOCYTES % (AUTO) 15.9 % (20.0-44.0); MEAN CORPUSCULAR HGB CONC 33 g/dl (31.0-36.0); MEAN CORPUSCULAR VOLUME 84 fL (82-100); MONOCYTES # (AUTO) 0.5 /CMM (0.1-1.30); MONOCYTES % (AUTO) 9.9 % (2.0-12.0); NEUTROPHILS # (AUTO) 3.6 /CMM (1.8-8.9); NEUTROPHILS % (AUTO) 72.6 % (43.0-81.0); PLATELET COUNT (AUTO) 217 /CMM (150-450); RED BLOOD CELL COUNT(AUTO) 4.66 MIL/uL (4.0-5.2); WHITE BLOOD COUNT (AUTO) 4.9 K/uL (4.3-11.0)
--- NOTE | 2019-04-08 15:31 | NUR ---
PATIENT BIBA RA 878. WITH REPORT OF "BLE pain- legs hurting and have a broken R foot". PATIENT A/O X 4, NO ACUTE DISTRESS. ASSISTED TO BED AND CONNECTED TO MONITOR. WILL CONTINUE TO MONITOR
--- NOTE | 2019-04-08 15:39 | NUR ---
POLICE CAPTAIN SENIOR AT BEDSIDE
[2019-04-08 15:41] LABS: CALCIUM, SERUM 10.1 mg/dL (8.5-10.1); CREATININE 0.9 mg/dL (0.6-1.3)
--- NOTE | 2019-04-08 16:40 | NUR ---
us tech at bedside
[2019-04-08 19:08] VITALS: BP 124/80
--- NOTE | 2019-04-08 19:08 | NUR ---
Patient discharged to home in stable condition. Written and verbal after care instructions given. Patient verbalizes understanding of instruction.
== END | disposition home or self-care (01) ==
LOC: ER 14:54
DX: M79.604 Pain in right leg (principal); E66.01 Morbid (severe) obesity due to excess calories; R60.0 Localized edema; I10 Essential (primary) hypertension; I48.91 Unspecified atrial fibrillation; K21.9 Gastro-esophageal reflux disease without esophagitis; G56.00 Carpal tunnel syndrome, unspecified upper limb; F32.9 Major depressive disorder, single episode, unspecified; J44.9 Chronic obstructive pulmonary disease, unspecified; G89.29 Other chronic pain; Z90.710 Acquired absence of both cervix and uterus; Z88.0 Allergy status to penicillin; Z86.718 Personal history of other venous thrombosis and embolism; Z96.653 Presence of artificial knee joint, bilateral; Z88.1 Allergy status to other antibiotic agents; Z79.82 Long term (current) use of aspirin; Z68.43 Body mass index [BMI] 50.0-59.9, adult
CPT/HCPCS: 36415; 73590-TC; 80048-TC; 85025-TC; 85730-TC; 93970-TC

== ENCOUNTER 2019-05-24 18:43 | Emergency (ER) | payer OTHER ==
[~2019-05-24] VITALS: Ht 180.3 cm; Wt 179.2 kg
[~2019-05-24 18:43] MED LIST changes: -HYDROCODONE/APAP 5/325MG 1 EACH TABLET ONE; -HYDROCODONE/APAP 5/325MG 1 EACH TABLET PO ONE
[2019-05-24 19:16] VITALS: BP 165/93
[2019-05-24] MEDS ORDERED: HYDROCODONE/APAP 5/325MG 1 EACH TABLET PO ONE (20:30)
[2019-05-24] MEDS ORDERED: HYDROCODONE/APAP 5/325MG 1 EACH TABLET ONE (20:50)
== END 2019-05-24 21:19 | disposition home or self-care (01) ==
LOC: ER 18:48
DX: S82.892A Other fracture of left lower leg, initial encounter for closed fracture (principal); I10 Essential (primary) hypertension; I48.91 Unspecified atrial fibrillation; K21.9 Gastro-esophageal reflux disease without esophagitis; J45.909 Unspecified asthma, uncomplicated; F32.9 Major depressive disorder, single episode, unspecified; G89.29 Other chronic pain; Z86.718 Personal history of other venous thrombosis and embolism; Z90.710 Acquired absence of both cervix and uterus; Z98.890 Other specified postprocedural states; Z88.0 Allergy status to penicillin; Z88.1 Allergy status to other antibiotic agents; Z79.899 Other long term (current) drug therapy; Z79.82 Long term (current) use of aspirin; W22.8XXA Striking against or struck by other objects, initial encounter; Y93.89 Activity, other specified; Y92.89 Other specified places as the place of occurrence of the external cause; Y99.8 Other external cause status
CPT/HCPCS: 73610-TC

== ENCOUNTER 2021-08-08 15:53 | Inpatient (IN) | payer OTHER ==
[~2021-08-08] VITALS: Ht 181.6 cm; Wt 147.4 kg
[~2021-08-08 15:53] MED LIST changes: +LISI10TA29 PO; -LISI10TA5 PO
--- NOTE | 2021-08-08 16:02 | NUR ---
To ER bed 10, MACARIO RA39 "was on the orange line Right Nose bleed/High BP and pain on palpation", aaox3, on BP meds, aaox3, breathing even and non labored, connected to monitor, awaiting md desai
[2021-08-08] MEDS ORDERED: TRAMADOL HCL 50 MG TABLET PO ONE (16:30)
[2021-08-08] MEDS ORDERED: TRAMADOL HCL 50 MG TABLET ONE (16:42)
--- NOTE | 2021-08-08 16:53 | NUR ---
Shira boone in [facility] - 08/08/21 at 1713 by MITCHEL MITCHEL;08/08/21 1653 PT REFUSES BLOOD WORK
[2021-08-08] MEDS ORDERED: HYDROCODONE/APAP 10/325MG TABLET ONE (16:55)
[2021-08-08] MEDS ORDERED: HYDROCODONE/APAP 10/325MG TABLET PO ONE (17:00)
[2021-08-08 17:42] LABS: BASOPHILS # (AUTO) 0.1 K/uL (0.0-0.2); EOSINOPHILS % (AUTO) 1.2 % (0.0-6.0); HEMATOCRIT 36 % (33-45); HEMOGLOBIN 11.5 g/dL (11.5-14.8); LYMPHOCYTES # (AUTO) 1.5 K/uL (0.8-4.8); LYMPHOCYTES % (AUTO) 20.5 % (20.0-44.0); MEAN CORPUSCULAR HGB CONC 32 g/dl (31.0-36.0); MEAN CORPUSCULAR VOLUME 82 fL (82-100); MONOCYTES # (AUTO) 0.6 K/uL (0.1-1.30); MONOCYTES % (AUTO) 9.1 % (2.0-12.0); NEUTROPHILS # (AUTO) 4.9 K/uL (1.8-8.9); NEUTROPHILS % (AUTO) 68.2 % (43.0-81.0); PLATELET COUNT (AUTO) 211 K/uL (150-450); RED BLOOD CELL COUNT(AUTO) 4.42 MIL/uL (4.0-5.2); WHITE BLOOD COUNT (AUTO) 7.1 K/uL (4.3-11.0)
[2021-08-08] MEDS ORDERED: INSU100I26 SQ ×2 (17:56→18:12)
[2021-08-08] MEDS ORDERED: IMIP10TA5 PO (17:56)
[2021-08-08] MEDS ORDERED: HYDR-3972 PO (17:56)
[2021-08-08] MEDS ORDERED: GABA-532 PO (17:56)
[2021-08-08] MEDS ORDERED: DONE10TA44 PO (17:56)
[2021-08-08] MEDS ORDERED: CARV12.52 PO (17:56)
[2021-08-08] MEDS ORDERED: STARLIX PO (17:56)
[2021-08-08] MEDS ORDERED: POTA10CA43 PO (17:56)
[2021-08-08] MEDS ORDERED: RIVA10TA PO (17:56)
[2021-08-08] MEDS ORDERED: ROSU10TA2 PO (17:56)
[2021-08-08] MEDS ORDERED: CYCL10TA9 PO (18:12)
[2021-08-08] MEDS ORDERED: QUET50TA PO (18:12)
--- NOTE | 2021-08-08 18:13 | NUR ---
COVID SWAB DONE AND SENT TO LAB
[2021-08-08 19:37] LABS: D-DIMER 1.6 mg/L(FEU (0.17-0.50)
[2021-08-08 19:38] LABS: CALCIUM, SERUM 9.7 mg/dL (8.5-10.1); CARBON DIOXIDE 29 mmol/L (21-32); CHLORIDE 100 mmol/L (98-107); CREATININE 0.9 mg/dL (0.6-1.3); GLUCOSE 159 mg/dL (74-106); POTASSIUM 4.2 mmol/L (3.5-5.1); SODIUM SERUM 135 mmol/L (136-145); UREA NITROGEN, BLOOD 23 mg/dL (7-18)
[2021-08-08 19:51] LABS: ALANINE AMINOTRANSFERASE 24 U/L (12-78); ALBUMIN 3.2 g/dL (3.4-5.0); ALKALINE PHOSPHATASE 116 U/L (46-116); ASPARTATE AMINOTRANSFERASE 15 U/L (15-37); BILIRUBIN,DIRECT 0.1 mg/dL (0.0-0.2); BILIRUBIN,TOTAL 0.3 mg/dL (0.2-1.0); TOTAL PROTEIN, SERUM 7.8 g/dL (6.4-8.2)
[2021-08-08] MEDS ORDERED: CT SWABBABLE VALVE TRANS SET 1 EA INFUS.SET MC ONE (20:13)
[2021-08-08] MEDS ORDERED: IOHEXOL-350 100 ML VIAL IV ONE (20:13)
[2021-08-08] MEDS ORDERED: IV NS 0.9% 250 ML IV ONE (20:13)
[2021-08-08] MEDS ORDERED: HYDROCODONE/APAP 5/325MG TABLET ONE (20:49)
[2021-08-08] MEDS ORDERED: HYDROCODONE/APAP 5/325MG TABLET PO ONE (21:00)
[2021-08-08] MEDS ORDERED: MAGNESIUM HYDROXIDE 30 ML UDC PO PRN (23:00)
[2021-08-08] MEDS ORDERED: ENOXAPARIN SODIUM 40 MG/0.4 ML DISP.SYRIN SQ SCH (23:00)
[2021-08-08] MEDS ORDERED: ONDANSETRON HCL/PF 4 MG/2 ML VIAL IVP PRN (23:00)
[2021-08-08] MEDS ORDERED: MAG HYDROX/AL HYDROX/SIMETH 30 ML UDC PO PRN (23:00)
[2021-08-08] MEDS ORDERED: Z GUARD REMEDY 4 OZ OINT TP PRN (23:00)
[2021-08-08] MEDS ORDERED: ACETAMINOPHEN 325 MG TABLET PO PRN (23:00)
[2021-08-08] MEDS ORDERED: ONDANSETRON HCL/PF 4 MG/2 ML VIAL ONE (23:36)
--- NOTE | 2021-08-09 01:05 | NUR ---
PT REFUSED BLOOD DRAW FROM ASSOCIATE PROFESSOR OF THEATRE; VERBALIZED RISK VS BENEFITS
[2021-08-09] MEDS ORDERED: ACETAMINOPHEN 325 MG TABLET ONE (02:55)
[2021-08-09 05:11] LABS: BASOPHILS % (AUTO) 0.5 % (0.0-2.0); EOSINOPHILS % (AUTO) 1.8 % (0.0-6.0); HEMATOCRIT 35 % (33-45); HEMOGLOBIN 11.2 g/dL (11.5-14.8); LYMPHOCYTES # (AUTO) 1.4 K/uL (0.8-4.8); LYMPHOCYTES % (AUTO) 29.8 % (20.0-44.0); MEAN CORPUSCULAR HGB CONC 32 g/dl (31.0-36.0); MEAN CORPUSCULAR VOLUME 82 fL (82-100); MONOCYTES # (AUTO) 0.6 K/uL (0.1-1.30); MONOCYTES % (AUTO) 13.9 % (2.0-12.0); NEUTROPHILS # (AUTO) 2.5 K/uL (1.8-8.9); PLATELET COUNT (AUTO) 208 K/uL (150-450); RED BLOOD CELL COUNT(AUTO) 4.31 MIL/uL (4.0-5.2); WHITE BLOOD COUNT (AUTO) 4.6 K/uL (4.3-11.0)
[2021-08-09 05:32] LABS: BILIRUBIN,TOTAL 0.3 mg/dL (0.2-1.0); CALCIUM, SERUM 9.7 mg/dL (8.5-10.1); MAGNESIUM 1.8 mg/dL (1.8-2.4); PHOSPHORUS 3.7 mg/dL (2.5-4.9); POTASSIUM 3.9 mmol/L (3.5-5.1); TOTAL PROTEIN, SERUM 7.6 g/dL (6.4-8.2)
--- NOTE | 2021-08-09 06:53 | NUR ---
PT SLEEPING IN BED. ON R/A TOLERATING WELL WITH NO SOB AT 98%. NO S/SX OF PAIN AT THIS TIME. ADELA MIDLINE #18G S/L; PATENT AND INTACT. SAFETY MEASURES IN PLACE; BED IN LOWEST LOCKED POSITION, SIDE RAILS UPX1, CALL LIGHT WITHIN EASY REACH. ALL NEEDS MET AT THIS TIME. WILL ENDORSE HENRY TO ONCOMING MORNING RN
[2021-08-09] MEDS: PANTOPRAZOLE 40 MG TABLET.DR PO SCH (07:30)
[2021-08-09] MEDS ORDERED: PANTOPRAZOLE 40 MG TABLET.DR PO SCH (07:30)
[2021-08-09] MEDS ORDERED: ISOSORBIDE MONONITRATE (30MG) 30 MG TAB.SR.24H PO ONE (08:00)
[2021-08-09] MEDS: CARVEDILOL 12.5 MG TABLET PO SCH ×3 (08:00→16:38)
[2021-08-09] MEDS ORDERED: CARVEDILOL 12.5 MG TABLET ONE (08:00)
[2021-08-09] MEDS ORDERED: PANTOPRAZOLE 40 MG TABLET.DR PO ONE (08:01)
[2021-08-09] MEDS ORDERED: LISINOPRIL (20MG) 20 MG TABLET ONE (08:01)
--- NOTE | 2021-08-09 08:35 | NUR ---
ULTRASOUND AT BEDSIDE
[2021-08-09] MEDS: DONEPEZIL 5 MG TABLET PO SCH (09:00)
[2021-08-09] MEDS ORDERED: DEXTROSE 50%-WATER 50 ML DISP.SYRIN IV PRN (09:00)
[2021-08-09] MEDS: GABAPENTIN 100 MG CAPSULE PO SCH ×3 (09:00→16:37)
[2021-08-09] MEDS ORDERED: IMIPRAMINE 10 MG TABLET PO SCH (09:00)
[2021-08-09] MEDS: CYCLOBENZAPRINE 10 MG TABLET PO SCH ×3 (09:00→16:37)
[2021-08-09] MEDS ORDERED: ALBUTEROL FS 2.5 MG/3 ML VIAL.NEB CONTNEB PRN (09:00)
[2021-08-09] MEDS: ISOSORBIDE MONONITRATE (30MG) 30 MG TAB.SR.24H PO SCH (09:00)
[2021-08-09] MEDS: LISINOPRIL (10MG) 10 MG TABLET PO SCH (09:00)
[2021-08-09] MEDS ORDERED: CYCLOBENZAPRINE 10 MG TABLET ONE (09:06)
[2021-08-09] MEDS ORDERED: DONEPEZIL 5 MG TABLET ONE (09:07)
[2021-08-09] MEDS ORDERED: GABAPENTIN 300 MG CAPSULE ONE (09:07)
[2021-08-09] MEDS ORDERED: HYDROCODONE/APAP 5/325MG TABLET ONE (09:12)
[2021-08-09] MEDS: HYDROCODONE/APAP 5/325MG TABLET PO PRN ×2 (09:30→15:29)
[2021-08-09] MEDS ORDERED: IOHEXOL-350 100 ML VIAL IV ONE (09:33)
[2021-08-09] MEDS ORDERED: NITROGLYCERIN 0.4 MG/TAB BOTTLE ONE (09:33)
[2021-08-09] MEDS: BLOOD SUGAR DIAGNOSTIC 1 EACH STRIP VI SCH ×4 (09:34→22:51)
[2021-08-09] MEDS ORDERED: CT SWABBABLE VALVE TRANS SET 1 EA INFUS.SET MC ONE (09:34)
[2021-08-09] MEDS ORDERED: IV NS 0.9% 250 ML IV ONE (09:34)
[2021-08-09] MEDS ORDERED: METOPROLOL TARTRATE INJ 5 MG/5 ML AMPUL ONE ×4 (09:34→10:25)
[2021-08-09] MEDS: INSULIN REGULAR, HUMAN 100 UNIT/ML 3 ML VIAL SQ PRN ×3 (09:36→16:59)
--- NOTE | 2021-08-09 09:43 | NUR ---
BED 327-2
--- NOTE | 2021-08-09 09:47 | NUR ---
REPORT GIVEN TO KALYAN COOLEY FOR HENRY
[2021-08-09] MEDS: METOPROLOL TARTRATE INJ 5 MG/5 ML AMPUL IVP PRN ×10 (09:50→10:35)
[2021-08-09] MEDS ORDERED: NITROGLYCERIN 0.4 MG/TAB BOTTLE SL ONE (10:00)
--- NOTE | 2021-08-09 10:52 | NUR ---
BACK FROM CT
--- NOTE | 2021-08-09 10:58 | NUR ---
TRANSFERRED TO BED 327 IN STABLE CONDITION
--- NOTE | 2021-08-09 11:30 | NUR ---
RN ADMITTING NOTES ADMITTED THIS 61 Y/O FEMALE PATIENT TO UNIT @1100 FROM EMERGENCY ROOM TRANSPORTED VIA GURNEY. ACCOMPANIED BY ER STAFF, WITH ADMITTING DIAGNOSIS OF CHEST PAIN R/O ACS. PATIENT IS ALERT, A/O X4, VERBALLY RESPONSIVE, NO SIGNS OF ACUTE DISTRESS NOTED. ON ROOM AIR, TOLERATING WELL, NO SOB NOTED, BREATHING EVEN AND UNLABORED. PATIENT PLACED ON FIELD CANE SCALER WITH CURRENT READING OF NSR, HR @69. DENIES CHEST PAIN. NOTED WITH IV ACCESS ON ADELA MIDLINE #18G, SL, INTACT AND PATENT, FLUSHES WELL. BODY ASSESSMENT DONE, NOTED WITH LEFT ABDOMEN SCABS, RIGHT PATE SCAB AND RIGHT KNEE OPEN AREA. TREATMENT PROTOCOL PROVIDED. SAFETY MEASURES IN PLACE, BED LOCKED AND IN LOWEST POSITION, SR UP X2, CALL LIGHT PLACED WITHIN EASY EACH. WILL CONTINUE TO MONITOR PATIENT.
[2021-08-09] MEDS: QUETIAPINE FUMARATE 25 MG TABLET PO SCH ×2 (12:28→16:37)
[2021-08-09] MEDS: POTASSIUM CHLORIDE 10 MEQ TABLET.SA PO SCH (16:37)
[2021-08-09] MEDS ORDERED: RIVAROXABAN 10 MG TABLET PO SCH (17:00)
--- NOTE | 2021-08-09 18:55 | NUR ---
chemical research technician Closing Notes Patient in bed, awake, verbally responsive. No signs of acute distress noted. Remains on room air, tolerating well, no SOB noted, breathing even and unlabored. On threat monitoring analyst with current reading of SR @ 83. No c/o chest pain. IV acces on ADELA ML #18 G, SL, intact and patent. Safety measures maintained. Bed locked and in lowest position, call light placed within easy reach. Will endorse to next shift.
--- NOTE | 2021-08-09 19:15 | NUR ---
RN NOTES: RECEIVED AWAKE ON BED, A/OX4, ON ROOM AIR-97%, TREE WARDEN ON, SINUS RHYTHM-80'S, ADELA-MIDLINE INTACT AND PATENT, FOR CARDIO CONSULT, ON SUPPORTIVE CARE, LABS IN THE MORNING, ASKING FOR NORCO 10/325, PER OUTGOING RN, ORDER WAS OBTAINED. -ORIENTED TO UNIT AND STAFF, FALL, SAFETY AND ASPIRATION PRECAUTION OBSERVED,KEPT CALL LIGHT WITHIN EASY EACH.
[2021-08-09 20:00] VITALS: BP 132/81
[2021-08-09] MEDS: HYDROCODONE/APAP 10/325MG TABLET PO PRN (21:39)
--- NOTE | 2021-08-09 21:40 | NUR ---
RN NOTES: REQUEST FOR HIS NORCO COMPLAINED OF PAIN 10/10 GENERALIZED, NON PHARMACOLOGIC INTERVENTION RENDERED, DIM LIT AND WARM BLANKET GIVEN.
[2021-08-09] MEDS ORDERED: ATORVASTATIN 10 MG TABLET PO SCH (22:00)
[2021-08-09] MEDS: *INSULIN REGULAR(HUMULIN R)HUM 100 UNIT/ML VIAL SQ PRN (22:52)
--- NOTE | 2021-08-09 22:52 | NUR ---
RN NOTES: -EATING SNACKS IN BETWEEN, BS IS 285, INSULIN GIVEN PER SCALE, WILL CONTINUE TO MONITOR FOR HYPER/HYPOGLYCEMIA.
[2021-08-10] VITALS: BP 128/68
[2021-08-10 04:00] VITALS: BP 116/75
[2021-08-10] MEDS: HYDROCODONE/APAP 10/325MG TABLET PO PRN ×2 (04:31→13:15)
--- NOTE | 2021-08-10 04:31 | NUR ---
RN NOTES: AWAKE, REPOSITIONED, SHE COMPLAINTS OF GENERALIZED PAIN AND REQUEST TO HAVE HER NORCO 10/325, KEPT ROOM A LITTLE BIT WARM, KEPT COMFORTABLE, CALL LIGHT WITHIN EASY REACH.
[2021-08-10] MEDS: BLOOD SUGAR DIAGNOSTIC 1 EACH STRIP VI SCH ×2 (06:38→12:00)
[2021-08-10] MEDS: *INSULIN REGULAR(HUMULIN R)HUM 100 UNIT/ML VIAL SQ PRN (06:39)
--- NOTE | 2021-08-10 06:46 | NUR ---
RN NOTES: BLOOD SUGAR CHECKED-141, INSULIN GIVEN PER SCALE, WILL CONTINUE TO MONITOR FOR SIGN OF HYPER/HYPOGLYCEMIA.
--- NOTE | 2021-08-10 07:59 | NUR ---
RN NOTES: AWAKE IN BETWEEN, CALLS AND NEEDS ATTENDED, SHE IS ASKING FOR HER BREAKFAST, REMAINS IN SR-80'S, STILL PENDING ECHO AND CTCA, FOR CARDIO CONSULT, BP AND BS NEEDS TO BE CONTROLLED, ENDORSED FOR CONTINUITY OF CARE.
--- NOTE | 2021-08-10 08:12 | NUR ---
RN OPENING NOTES PATIENT AWAKE IN BED RESTING, A/O X4. NO S/S OF PAIN NOTED AT THIS TIME. ON ROOM AIR, NO DISTRESS OR SHORTNESS OF BREATH NOTED. IV ACCESS ADELA MIDLINE, INTACT, PATENT AND FLUSHING WELL. PATIENT HAVE EXTERNAL LACE STRIPPER, SR. AND HR 80. FALL AND SAFETY MEASURES IN PLACE, BED ALARM ON, BED IN LOW AND LOCK POSITION, CALL LIGHT AND TABLE WITHIN EASY REACH, SIDE RAILS UP X2. WILL CONTINUE TO MONITOR.
[2021-08-10 08:42] VITALS: BP 155/99
[2021-08-10] MEDS ORDERED: HYDR-3972 PO (08:57)
[2021-08-10] MEDS ORDERED: QUET50TA PO (09:02)
[2021-08-10] MEDS: GABAPENTIN 100 MG CAPSULE PO SCH ×2 (09:25→13:10)
[2021-08-10] MEDS: POTASSIUM CHLORIDE 10 MEQ TABLET.SA PO SCH (09:25)
[2021-08-10] MEDS: DONEPEZIL 5 MG TABLET PO SCH (09:26)
[2021-08-10] MEDS: QUETIAPINE FUMARATE 25 MG TABLET PO SCH ×2 (09:26→13:10)
[2021-08-10] MEDS: CYCLOBENZAPRINE 10 MG TABLET PO SCH ×2 (09:26→13:10)
[2021-08-10] MEDS: ISOSORBIDE MONONITRATE (30MG) 30 MG TAB.SR.24H PO SCH (09:26)
[2021-08-10 09:27] VITALS: BP 155/99
[2021-08-10] MEDS: LISINOPRIL (10MG) 10 MG TABLET PO SCH (09:27)
[2021-08-10] MEDS: CARVEDILOL 12.5 MG TABLET PO SCH (09:27)
[2021-08-10] MEDS: PANTOPRAZOLE 40 MG TABLET.DR PO SCH (09:33)
--- NOTE | 2021-08-10 13:40 | NUR ---
INFORMATION DELIVERY ANALYST NOTE PATIENT DISCHARGE IN MEDICAL STABLE CONDITION. A/O X4. V/S TAKEN, STABLE AND RECORDED. NO IV ACCESS. SKIN ASSESSMENT DONE AND PICTURES TAKEN. NAME ARM BAND REMOVED. ALL BELONGINGS CHECKED AND SIGNED. HEALTH TEACHING AND DISCHARGE INSTRUCTIONS GIVEN AND VERBALIZED UNDERSTANDING. PATIENT LEFT UNIT VIA WHEELCHAIR WITH NO SIGNS OF DISTRESS, ACCOMPANIED BY RN TO THE LOBBY. CHARGE NURSE AWARE OF DISCHARGED.
== END 2021-08-10 13:13 | disposition home or self-care (01) | DRG 203 ==
LOC: ER 16:15 → TRANSITION 08-09 03:34 → TELE 08-09 10:02 → MED 08-10 10:35
PROVIDERS: ADMIT Hospitalist; ATTEND Internal Medicine
PROC: 05HD33Z Insertion of Infusion Device into Right Cephalic Vein, Percutaneous Approach (ICD-10-PCS; principal; 2021-08-09)
DX: M94.0 Chondrocostal junction syndrome [Tietze] (principal); E87.1 Hypo-osmolality and hyponatremia; E11.42 Type 2 diabetes mellitus with diabetic polyneuropathy; M48.04 Spinal stenosis, thoracic region; D64.9 Anemia, unspecified; E11.65 Type 2 diabetes mellitus with hyperglycemia; G56.00 Carpal tunnel syndrome, unspecified upper limb; I48.91 Unspecified atrial fibrillation; I25.10 Atherosclerotic heart disease of native coronary artery without angina pectoris; E66.01 Morbid (severe) obesity due to excess calories; E78.5 Hyperlipidemia, unspecified; I10 Essential (primary) hypertension; J44.9 Chronic obstructive pulmonary disease, unspecified; R04.0 Epistaxis; K21.9 Gastro-esophageal reflux disease without esophagitis; Z20.822 Contact with and (suspected) exposure to COVID-19; Z99.3 Dependence on wheelchair; Z86.711 Personal history of pulmonary embolism; Z90.710 Acquired absence of both cervix and uterus; Z96.652 Presence of left artificial knee joint; Z86.718 Personal history of other venous thrombosis and embolism; Z88.1 Allergy status to other antibiotic agents; Z88.0 Allergy status to penicillin; Z79.4 Long term (current) use of insulin; Z79.01 Long term (current) use of anticoagulants; Z79.51 Long term (current) use of inhaled steroids; Z79.82 Long term (current) use of aspirin; Z79.899 Other long term (current) drug therapy; Z68.41 Body mass index [BMI] 40.0-44.9, adult; G89.4 Chronic pain syndrome; Z91.81 History of falling; M77.9 Enthesopathy, unspecified
CPT/HCPCS: 36410; 36415; 71045-TC; 75574; 80048-TC; 80053-TC; 80061-TC; 80076-TC; 82962-TC; 83690-TC; 83735-TC; 83880; 84100-TC; 84484-TC; 85025-TC; 85378-TC; 85730-TC; 87081-TC; 93307-TC; C9803; G0378; J1650; J1815; J2405; J3490; J7050; Q9967

== ENCOUNTER 2021-08-20 15:35 | Emergency (ER) | payer OTHER ==
[~2021-08-20] VITALS: Ht 180.3 cm; Wt 142.9 kg
[~2021-08-20 15:35] MED LIST changes: -ASPI-992 PO; +CARV12.52 PO; +CYCL10TA9 PO; +DONE10TA44 PO; +GABA-532 PO; +HYDR-3972 PO; +INSU100I26 SQ; -LEVA0.31 IH; -MONT10TA22 PO; +POTA10CA43 PO; +QUET50TA PO; +RIVA10TA PO; +ROSU10TA2 PO; -SIMV20TA2 PO; -SOTA80TA26 PO; +STARLIX PO; -ZOLP10TA2 PO
[2021-08-20 15:57] VITALS: BP 132/82
[2021-08-20] MEDS ORDERED: IBUPROFEN 600 MG TABLET PO ONE (16:30)
[2021-08-20] MEDS ORDERED: IBUPROFEN 600 MG TABLET ONE (16:31)
[2021-08-20] MEDS ORDERED: HYDROCODONE/APAP 5/325MG TABLET PO ONE (17:00)
[2021-08-20] MEDS ORDERED: HYDROCODONE/APAP 5/325MG TABLET ONE (17:28)
== END 2021-08-20 19:01 | disposition home or self-care (01) ==
LOC: ER 15:57
DX: S90.412A Abrasion, left great toe, initial encounter (principal); M79.672 Pain in left foot; M79.671 Pain in right foot; M25.562 Pain in left knee; M25.561 Pain in right knee; M25.512 Pain in left shoulder; I10 Essential (primary) hypertension; I48.91 Unspecified atrial fibrillation; J45.909 Unspecified asthma, uncomplicated; K21.9 Gastro-esophageal reflux disease without esophagitis; G56.00 Carpal tunnel syndrome, unspecified upper limb; F32.9 Major depressive disorder, single episode, unspecified; J44.9 Chronic obstructive pulmonary disease, unspecified; G89.29 Other chronic pain; E66.9 Obesity, unspecified; Z96.652 Presence of left artificial knee joint; Z86.718 Personal history of other venous thrombosis and embolism; Z90.710 Acquired absence of both cervix and uterus; Z88.0 Allergy status to penicillin; Z88.1 Allergy status to other antibiotic agents; Z79.891 Long term (current) use of opiate analgesic; Z79.51 Long term (current) use of inhaled steroids; Z79.4 Long term (current) use of insulin; Z79.811 Long term (current) use of aromatase inhibitors; Z79.899 Other long term (current) drug therapy; W05.0XXA Fall from non-moving wheelchair, initial encounter; Y93.89 Activity, other specified; Y92.89 Other specified places as the place of occurrence of the external cause; Y99.8 Other external cause status
CPT/HCPCS: 73030-TC; 73564-TC

== ENCOUNTER 2022-01-01 20:11 | Emergency (ER) | payer OTHER ==
[~2022-01-01] VITALS: Ht 180.3 cm; Wt 136.1 kg
--- NOTE | 2022-01-01 20:40 | NUR ---
PATIENT BIBSELF FOR C/O LEFT GREAT TOE AND LEFT SIDED RIB PAIN X FEW DAYS +INJURY ON LEFT GREAT TOE.PATIENT IS A/O X 4 RR EVEN AND UNLABORED NO SOB NOTED. PATIENT CONNECTED TO CARDIAC AND POX MONITOR.
--- NOTE | 2022-01-01 20:42 | NUR ---
RAD AT BEDSIDE
[2022-01-01] MEDS ORDERED: ACETAMINOPHEN ES 500 MG TABLET PO ONE (21:00)
[2022-01-01] MEDS ORDERED: ACETAMINOPHEN ES 500 MG TABLET ONE (21:00)
[2022-01-01 21:03] LABS: BASOPHILS % (AUTO) 0.8 % (0.0-2.0); EOSINOPHILS % (AUTO) 0.7 % (0.0-6.0); HEMATOCRIT 39 % (33-45); HEMOGLOBIN 12.2 g/dL (11.5-14.8); LYMPHOCYTES # (AUTO) 1.3 K/uL (0.8-4.8); LYMPHOCYTES % (AUTO) 26.1 % (20.0-44.0); MEAN CORPUSCULAR HGB CONC 32 g/dl (31.0-36.0); MEAN CORPUSCULAR VOLUME 81 fL (82-100); MONOCYTES # (AUTO) 0.6 K/uL (0.1-1.30); MONOCYTES % (AUTO) 11.9 % (2.0-12.0); NEUTROPHILS % (AUTO) 60.5 % (43.0-81.0); PLATELET COUNT (AUTO) 221 K/uL (150-450)
[2022-01-01 21:05] VITALS: BP 121/69
[2022-01-01 21:18] LABS: CALCIUM, SERUM 9.7 mg/dL (8.5-10.1); CARBON DIOXIDE 24 mmol/L (21-32); CHLORIDE 97 mmol/L (98-107); CREATININE 1.3 mg/dL (0.6-1.3); POTASSIUM 4.1 mmol/L (3.5-5.1); SODIUM SERUM 133 mmol/L (136-145); UREA NITROGEN, BLOOD 16 mg/dL (7-18)
[2022-01-01 21:21] LABS: GLUCOSE 366 mg/dL (74-106)
[2022-01-01] MEDS ORDERED: QUET50TA PO (21:45)
[2022-01-01] MEDS ORDERED: CYCL5TAB PO (21:45)
--- NOTE | 2022-01-01 22:15 | NUR ---
Patient discharged to home in stable condition. Written and verbal after care instructions given. Patient verbalizes understanding of instruction.
== END 2022-01-01 22:15 | disposition home or self-care (01) ==
LOC: ER 20:20
DX: S90.112A Contusion of left great toe without damage to nail, initial encounter (principal); R07.89 Other chest pain; I10 Essential (primary) hypertension; I48.91 Unspecified atrial fibrillation; J45.909 Unspecified asthma, uncomplicated; K21.9 Gastro-esophageal reflux disease without esophagitis; E11.9 Type 2 diabetes mellitus without complications; F32.A Depression, unspecified; J44.9 Chronic obstructive pulmonary disease, unspecified; G89.29 Other chronic pain; Z88.8 Allergy status to other drugs, medicaments and biological substances; Z60.2 Problems related to living alone; Z79.899 Other long term (current) drug therapy; W22.8XXA Striking against or struck by other objects, initial encounter; Y93.89 Activity, other specified; Y92.89 Other specified places as the place of occurrence of the external cause; Y99.8 Other external cause status
CPT/HCPCS: 36415; 71045-TC; 73620-TC; 80048-TC; 84484-TC; 85025-TC

== ENCOUNTER 2022-03-31 16:23 | Emergency (ER) | payer OTHER ==
[~2022-03-31] VITALS: Ht 180.3 cm; Wt 136.1 kg
[~2022-03-31 16:23] MED LIST changes: +CYCL5TAB PO
[2022-03-31 16:38] VITALS: BP 139/84
[2022-03-31] MEDS ORDERED: CYCL10TA9 PO ×2 (17:08→17:23)
[2022-03-31] MEDS ORDERED: CYCLOBENZAPRINE 10 MG TABLET ONE (17:18)
[2022-03-31] MEDS ORDERED: CYCLOBENZAPRINE 10 MG TABLET PO ONE (17:30)
== END 2022-03-31 17:31 | disposition home or self-care (01) ==
LOC: ER 16:26
DX: Z76.0 Encounter for issue of repeat prescription (principal); M62.838 Other muscle spasm; I10 Essential (primary) hypertension; I48.91 Unspecified atrial fibrillation; J45.909 Unspecified asthma, uncomplicated; K21.9 Gastro-esophageal reflux disease without esophagitis; E11.9 Type 2 diabetes mellitus without complications; F32.A Depression, unspecified; J44.9 Chronic obstructive pulmonary disease, unspecified; G89.29 Other chronic pain; Z88.0 Allergy status to penicillin; Z88.8 Allergy status to other drugs, medicaments and biological substances; Z60.2 Problems related to living alone; Z79.899 Other long term (current) drug therapy

== ENCOUNTER 2022-04-02 21:38 | Emergency (ER) | payer OTHER ==
[~2022-04-02] VITALS: Ht 180.3 cm; Wt 99.8 kg
[2022-04-02] MEDS ORDERED: HYDROCODONE/APAP 5/325MG TABLET ONE (23:00)
[2022-04-02] MEDS ORDERED: HYDROCODONE/APAP 5/325MG TABLET PO ONE (23:00)
--- NOTE | 2022-04-03 00:56 | NUR ---
Patient discharged to home in stable condition. Written and verbal after care instructions given. Patient verbalizes understanding of instruction.
[2022-04-03 01:29] VITALS: BP 138/79
== END 2022-04-03 01:00 | disposition home or self-care (01) ==
LOC: ER 21:44
DX: S49.92XA Unspecified injury of left shoulder and upper arm, initial encounter (principal); S69.92XA Unspecified injury of left wrist, hand and finger(s), initial encounter; I10 Essential (primary) hypertension; I48.91 Unspecified atrial fibrillation; J45.909 Unspecified asthma, uncomplicated; K21.9 Gastro-esophageal reflux disease without esophagitis; F32.A Depression, unspecified; G89.29 Other chronic pain; J44.9 Chronic obstructive pulmonary disease, unspecified; Z88.0 Allergy status to penicillin; Z88.8 Allergy status to other drugs, medicaments and biological substances; Z60.2 Problems related to living alone; Z79.899 Other long term (current) drug therapy; V09.9XXA Pedestrian injured in unspecified transport accident, initial encounter; Y93.89 Activity, other specified; Y92.481 Parking lot as the place of occurrence of the external cause; Y99.8 Other external cause status
CPT/HCPCS: 71045-TC; 73030-TC; 73060-TC; 73090-TC; 73110

== ENCOUNTER 2022-04-16 17:27 | Emergency (ER) | payer OTHER ==
[~2022-04-16] VITALS: Ht 180.3 cm; Wt 114.3 kg
--- NOTE | 2022-04-16 17:33 | NUR ---
CALLED SECURITY FOR WANDING
[2022-04-16] MEDS ORDERED: CYCLOBENZAPRINE 10 MG TABLET PO ONE (18:30)
[2022-04-16] MEDS ORDERED: CYCLOBENZAPRINE 10 MG TABLET ONE (18:32)
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
[2022-04-16] MEDS ORDERED: CYCL10TA9 PO (20:08)
--- NOTE | 2022-04-16 20:08 | NUR ---
Patient discharged to home in stable condition. Written and verbal after care instructions given. Patient verbalizes understanding of instruction.
[2022-04-16 20:37] VITALS: BP 151/94
== END 2022-04-16 20:13 | disposition home or self-care (01) ==
LOC: ER 19:34
DX: R07.81 Pleurodynia (principal); I10 Essential (primary) hypertension; I48.91 Unspecified atrial fibrillation; J45.909 Unspecified asthma, uncomplicated; K21.9 Gastro-esophageal reflux disease without esophagitis; F32.A Depression, unspecified; J44.9 Chronic obstructive pulmonary disease, unspecified; G89.29 Other chronic pain; Z88.0 Allergy status to penicillin; Z88.8 Allergy status to other drugs, medicaments and biological substances; Z60.2 Problems related to living alone; Z79.899 Other long term (current) drug therapy
CPT/HCPCS: 71111-TC

== ENCOUNTER 2022-05-13 15:44 | Emergency (ER) | payer OTHER ==
[~2022-05-13] VITALS: Ht 180.3 cm; Wt 117.0 kg
[2022-05-13 15:59] VITALS: BP 150/100
[2022-05-13] MEDS ORDERED: QUETIAPINE FUMARATE 25 MG TABLET PO SCH (16:18)
[2022-05-13] MEDS ORDERED: QUETIAPINE FUMARATE 25 MG TABLET ONE (16:25)
[2022-05-13] MEDS ORDERED: ACETAMINOPHEN 325 MG TABLET ONE (16:25)
[2022-05-13] MEDS ORDERED: CYCLOBENZAPRINE 10 MG TABLET ONE (16:26)
[2022-05-13] MEDS ORDERED: ACETAMINOPHEN 325 MG TABLET PO ONE (16:30)
[2022-05-13] MEDS ORDERED: CYCLOBENZAPRINE 10 MG TABLET PO ONE (16:30)
--- NOTE | 2022-05-13 16:38 | NUR ---
Patient discharged to home in stable condition. Written and verbal after care instructions given. Patient verbalizes understanding of instruction.
== END 2022-05-13 16:38 | disposition home or self-care (01) ==
LOC: ER 15:46
DX: S40.012A Contusion of left shoulder, initial encounter (principal); S40.011A Contusion of right shoulder, initial encounter; F31.9 Bipolar disorder, unspecified; I48.91 Unspecified atrial fibrillation; J45.909 Unspecified asthma, uncomplicated; K21.9 Gastro-esophageal reflux disease without esophagitis; E11.9 Type 2 diabetes mellitus without complications; G89.29 Other chronic pain; J44.9 Chronic obstructive pulmonary disease, unspecified; Z88.0 Allergy status to penicillin; Z88.8 Allergy status to other drugs, medicaments and biological substances; Z60.2 Problems related to living alone; Z79.899 Other long term (current) drug therapy; W03.XXXA Other fall on same level due to collision with another person, initial encounter; Y93.89 Activity, other specified; Y92.89 Other specified places as the place of occurrence of the external cause; Y99.8 Other external cause status

== ENCOUNTER 2022-07-18 17:32 | Emergency (ER) | payer OTHER ==
[~2022-07-18] VITALS: Ht 180.3 cm; Wt 118.4 kg
[2022-07-18 20:00] VITALS: BP 148/88
[2022-07-18] MEDS ORDERED: LIDOCAINE 5% (PATCH) 1 EA PATCH TP ONE (20:00)
[2022-07-18] MEDS ORDERED: CYCLOBENZAPRINE 10 MG TABLET PO ONE (20:00)
[2022-07-18] MEDS ORDERED: CYCLOBENZAPRINE 10 MG TABLET ONE (20:09)
[2022-07-18] MEDS ORDERED: CYCL10TA9 PO ×3 (21:29→22:27)
[2022-07-18] MEDS ORDERED: LIDO30AD10 TP ×3 (21:29→22:27)
[2022-07-18 22:13] LABS: BILIRUBIN,URINE NEGATIVE (NEGATIVE); COLOR,URINE YELLOW (YELLOW); LEUKOCYTE ESTERASE ,URINE NEGATIVE (NEGATIVE); NITRITE, URINE NEGATIVE (NEGATIVE); PROTEIN,URINE 1+ mg/dl (NEGATIVE); UGLUCOSE NEGATIVE (NEGATIVE); UROBILINOGEN,URINE 0.2 EU/dL (0.2)
[2022-07-18] MEDS ORDERED: FLUO20CA36 PO (22:21)
[2022-07-18 22:56] LABS: BACTERIA,URINE RARE /HPF (None Seen); RBC,URINE 0-2 /HPF (0-2); WBC,URINE 0-2 /HPF (0-3)
[2022-07-18 22:57] LABS: MUCUS,URINE MOD /LPF (None Seen)
== END 2022-07-18 22:27 | disposition home or self-care (01) ==
LOC: ER 17:38
DX: G89.29 Other chronic pain (principal); M54.50 Low back pain, unspecified; I10 Essential (primary) hypertension; I48.91 Unspecified atrial fibrillation; J45.909 Unspecified asthma, uncomplicated; K21.9 Gastro-esophageal reflux disease without esophagitis; E11.9 Type 2 diabetes mellitus without complications; F32.A Depression, unspecified; J44.9 Chronic obstructive pulmonary disease, unspecified; Z88.0 Allergy status to penicillin; Z88.8 Allergy status to other drugs, medicaments and biological substances; Z60.2 Problems related to living alone; Z79.899 Other long term (current) drug therapy
CPT/HCPCS: 72100-TC; 81001

== ENCOUNTER 2022-10-16 15:40 | Emergency (ER) | payer OTHER ==
[~2022-10-16] VITALS: Ht 180.3 cm; Wt 158.8 kg
[~2022-10-16 15:40] MED LIST changes: +FLUO20CA36 PO; +LIDO30AD10 TP
[2022-10-16] MEDS ORDERED: CYCLOBENZAPRINE 10 MG TABLET ONE (16:28)
[2022-10-16] MEDS ORDERED: IBUPROFEN 600 MG TABLET ONE (16:28)
[2022-10-16] MEDS ORDERED: IBUPROFEN 600 MG TABLET PO ONE (16:30)
[2022-10-16] MEDS ORDERED: CYCLOBENZAPRINE 10 MG TABLET PO ONE (16:30)
--- NOTE | 2022-10-16 16:32 | NUR ---
pt states "motrin is NOT a pain pill- I'm NOT taking that tell the Doc I want a shot" notified. NO orders
[2022-10-16] MEDS ORDERED: CYCL5TAB PO (17:10)
--- NOTE | 2022-10-16 17:14 | NUR ---
Patient discharged to home in stable condition. Written and verbal after care instructions given. Patient verbalizes understanding of instruction.
[2022-10-16 17:24] VITALS: BP 100/63
== END 2022-10-16 17:27 | disposition home or self-care (01) ==
LOC: ER 15:57
DX: M25.512 Pain in left shoulder (principal); I10 Essential (primary) hypertension; I48.91 Unspecified atrial fibrillation; E11.9 Type 2 diabetes mellitus without complications; J45.909 Unspecified asthma, uncomplicated; K21.9 Gastro-esophageal reflux disease without esophagitis; F32.A Depression, unspecified; G89.29 Other chronic pain; Z88.0 Allergy status to penicillin; Z88.8 Allergy status to other drugs, medicaments and biological substances; Z60.2 Problems related to living alone; Z79.899 Other long term (current) drug therapy

== ENCOUNTER 2022-11-17 15:08 | Emergency (ER) | payer OTHER ==
[~2022-11-17] VITALS: Ht 180.3 cm; Wt 158.8 kg
--- NOTE | 2022-11-17 16:07 | NUR ---
PT IN BED 12, A/O X4 BREATHING IS UNLABORED BUT C/O IS SOB STATES SHE HAS BEEN SICK FOR 2 WEEKS. PT CONNECTED TO BEDSIDE MONITOR. BED LOCKED IN LOWEST POSITION.
--- NOTE | 2022-11-17 16:13 | NUR ---
AT BEDSIDE FOR EVAL
[2022-11-17] MEDS ORDERED: CYCLOBENZAPRINE 10 MG TABLET PO ONE (16:30)
[2022-11-17] MEDS ORDERED: IPRATROPIUM NEB FS 0.5 MG/2.5 ML AMPUL.NEB NEB ONE (16:30)
[2022-11-17] MEDS ORDERED: ALBUTEROL FS 2.5 MG/3 ML VIAL.NEB NEB ONE ×2 (16:30→18:00)
[2022-11-17] MEDS ORDERED: CYCLOBENZAPRINE 10 MG TABLET ONE (16:42)
[2022-11-17] MEDS ORDERED: ALBUTEROL FS 2.5 MG/3 ML VIAL.NEB ONE ×2 (16:52→18:12)
[2022-11-17] MEDS ORDERED: IPRATROPIUM NEB FS 0.5 MG/2.5 ML AMPUL.NEB ONE (16:52)
--- NOTE | 2022-11-17 17:01 | NUR ---
COVID AND INFLUENZA SWABED AND SENT TO LAB
[2022-11-17] MEDS ORDERED: predniSONE 20 MG TABLET PO ONE (18:00)
[2022-11-17] MEDS ORDERED: predniSONE 20 MG TABLET ONE (18:36)
[2022-11-17] MEDS ORDERED: PRED20TA PO (18:37)
[2022-11-17] MEDS ORDERED: CYCL10TA9 PO (18:37)
[2022-11-17] MEDS ORDERED: QUET50TA PO (18:46)
[2022-11-17] MEDS ORDERED: FLUO10CA26 PO (18:46)
[2022-11-17 19:06] VITALS: BP 143/92
== END 2022-11-17 19:07 | disposition home or self-care (01) ==
LOC: ER 15:12
DX: B34.9 Viral infection, unspecified (principal); J45.901 Unspecified asthma with (acute) exacerbation; I10 Essential (primary) hypertension; I48.91 Unspecified atrial fibrillation; K21.9 Gastro-esophageal reflux disease without esophagitis; E11.9 Type 2 diabetes mellitus without complications; F32.A Depression, unspecified; Z98.890 Other specified postprocedural states; Z60.2 Problems related to living alone; Z79.899 Other long term (current) drug therapy; Z20.822 Contact with and (suspected) exposure to COVID-19; Z79.4 Long term (current) use of insulin; Z88.0 Allergy status to penicillin; Z88.1 Allergy status to other antibiotic agents
CPT/HCPCS: 99285; 71045; 87426; 87804 ×2; 94640 ×2; J7512; C9803

== ENCOUNTER 2022-12-16 16:19 | Emergency (ER) | payer OTHER ==
[~2022-12-16] VITALS: Ht 180.3 cm; Wt 158.8 kg
[~2022-12-16 16:19] MED LIST changes: +FLUO10CA26 PO; +PRED20TA PO
[2022-12-16 16:28] VITALS: BP 123/80
[2022-12-16] MEDS ORDERED: IBUPROFEN 400 MG TABLET ONE (16:41)
[2022-12-16] MEDS ORDERED: IBUPROFEN 400 MG TABLET PO ONE (17:00)
--- NOTE | 2022-12-16 17:00 | NUR ---
BLOOD DRAWN AND SENT TO LAB
--- NOTE | 2022-12-16 17:00 | NUR ---
ROBB ESTABLISHED. 20G R FA
--- NOTE | 2022-12-16 17:08 | NUR ---
XRAY AT BEDSIDE
[2022-12-16 17:38] LABS: BASOPHILS % (AUTO) 0.8 % (0.0-2.0); EOSINOPHILS % (AUTO) 4.2 % (0.0-6.0); HEMATOCRIT 39 % (33-45); HEMOGLOBIN 12.6 g/dL (11.5-14.8); LYMPHOCYTES # (AUTO) 1.2 K/uL (0.8-4.8); LYMPHOCYTES % (AUTO) 25.3 % (20.0-44.0); MEAN CORPUSCULAR HGB CONC 32 g/dl (31.0-36.0); MEAN CORPUSCULAR VOLUME 84 fL (82-100); MONOCYTES # (AUTO) 0.6 K/uL (0.1-1.30); MONOCYTES % (AUTO) 11.5 % (2.0-12.0); NEUTROPHILS # (AUTO) 2.8 K/uL (1.8-8.9); NEUTROPHILS % (AUTO) 58.2 % (43.0-81.0); PLATELET COUNT (AUTO) 217 K/uL (150-450); RED BLOOD CELL COUNT(AUTO) 4.69 MIL/uL (4.0-5.2); WHITE BLOOD COUNT (AUTO) 4.9 K/uL (4.3-11.0)
[2022-12-16 18:14] LABS: ALANINE AMINOTRANSFERASE 29 U/L (12-78); ALBUMIN 3.3 g/dL (3.4-5.0); ALKALINE PHOSPHATASE 118 U/L (46-116); ASPARTATE AMINOTRANSFERASE 25 U/L (15-37); BILIRUBIN,DIRECT 0.1 mg/dL (0.0-0.2); BILIRUBIN,TOTAL 0.4 mg/dL (0.2-1.0); CALCIUM, SERUM 10.1 mg/dL (8.5-10.1); CARBON DIOXIDE 24 mmol/L (21-32); CHLORIDE 101 mmol/L (98-107); POTASSIUM 5.1 mmol/L (3.5-5.1); SODIUM SERUM 135 mmol/L (136-145); TOTAL PROTEIN, SERUM 7.8 g/dL (6.4-8.2); UREA NITROGEN, BLOOD 11 mg/dL (7-18)
[2022-12-16 18:21] LABS: GLUCOSE 399 mg/dL (74-106)
[2022-12-16] MEDS ORDERED: IV NS 0.9% 1,000 ML BAG IV ONE (18:30)
[2022-12-16] MEDS ORDERED: INSULIN REGULAR, HUMAN 100 UNIT/ML 10 ML VIAL SQ ONE (18:30)
--- NOTE | 2022-12-16 18:38 | NUR ---
PATIENT LEFT WITH OWN WHEELCHAIR. PULLED OUT IV. REFUSED TO WAIT FOR DISCHARGE
== END 2022-12-16 18:40 | disposition left against medical advice (07) ==
LOC: ER 16:21
DX: R07.89 Other chest pain (principal); I10 Essential (primary) hypertension; I48.91 Unspecified atrial fibrillation; J45.909 Unspecified asthma, uncomplicated; K21.9 Gastro-esophageal reflux disease without esophagitis; E11.9 Type 2 diabetes mellitus without complications; F32.A Depression, unspecified; J44.9 Chronic obstructive pulmonary disease, unspecified; E66.9 Obesity, unspecified; Z98.890 Other specified postprocedural states; Z60.2 Problems related to living alone; Z79.899 Other long term (current) drug therapy; Z88.0 Allergy status to penicillin; Z88.1 Allergy status to other antibiotic agents
CPT/HCPCS: 36415; 71045-TC; 80048-TC; 80076-TC; 83880; 84484-TC; 85025-TC

== ENCOUNTER 2023-03-17 14:57 | Emergency (ER) | payer OTHER ==
[~2023-03-17] VITALS: Ht 180.3 cm; Wt 142.9 kg
[2023-03-17 15:28] VITALS: BP 158/86; TEMP 98.7; O2SAT 98
[2023-03-17] MEDS ORDERED: IBUPROFEN 400 MG TABLET ONE (15:58)
[2023-03-17] MEDS: IBUPROFEN 400 MG TABLET PO ONE (16:00)
== END 2023-03-17 17:00 | disposition home or self-care (01) ==
LOC: ER 14:58
DX: M25.521 Pain in right elbow (principal); I10 Essential (primary) hypertension; I48.91 Unspecified atrial fibrillation; J45.909 Unspecified asthma, uncomplicated; K21.9 Gastro-esophageal reflux disease without esophagitis; E11.9 Type 2 diabetes mellitus without complications; F32.A Depression, unspecified; E66.9 Obesity, unspecified; Z60.2 Problems related to living alone; Z98.890 Other specified postprocedural states; Z79.899 Other long term (current) drug therapy; Z88.0 Allergy status to penicillin; Z88.1 Allergy status to other antibiotic agents

== ENCOUNTER 2023-04-28 16:36 | Emergency (ER) | payer OTHER ==
[~2023-04-28] VITALS: Ht 180.3 cm; Wt 145.1 kg
[2023-04-28 16:40] VITALS: BP 116/87; TEMP 98.6; O2SAT 99
[2023-04-28] MEDS ORDERED: HYDROCODONE/APAP 5/325MG TABLET PO ONE ×2 (17:00→17:30)
[2023-04-28] MEDS ORDERED: HYDROCODONE/APAP 5/325MG TABLET ONE (17:14)
[2023-04-28] MEDS ORDERED: QUET50TA PO (18:55)
== END 2023-04-28 19:05 | disposition home or self-care (01) ==
LOC: ER 16:38
DX: M79.18 Myalgia, other site (principal); M25.511 Pain in right shoulder; I10 Essential (primary) hypertension; I48.91 Unspecified atrial fibrillation; J45.909 Unspecified asthma, uncomplicated; K21.9 Gastro-esophageal reflux disease without esophagitis; E11.9 Type 2 diabetes mellitus without complications; F32.A Depression, unspecified; Z79.899 Other long term (current) drug therapy; Z98.890 Other specified postprocedural states; Z60.2 Problems related to living alone; Z88.0 Allergy status to penicillin; Z88.1 Allergy status to other antibiotic agents
CPT/HCPCS: 73030-TC; 73110

== ENCOUNTER 2023-07-28 14:11 | Emergency (ER) | payer OTHER ==
[~2023-07-28] VITALS: Ht 180.3 cm; Wt 147.4 kg
[2023-07-28] MEDS: CYCLOBENZAPRINE 10 MG TABLET PO ONE (15:33)
[2023-07-28] MEDS: QUETIAPINE FUMARATE 25 MG TABLET PO SCH (15:33)
[2023-07-28] MEDS ORDERED: QUETIAPINE FUMARATE 25 MG TABLET ONE (15:34)
[2023-07-28] MEDS ORDERED: CYCLOBENZAPRINE 10 MG TABLET ONE (15:35)
[2023-07-28] MEDS ORDERED: KETO10TA2 PO (16:53)
[2023-07-28] MEDS ORDERED: CYCL5TAB PO (16:58)
[2023-08-28 23:21] VITALS: BP 132/78; TEMP 98.4; O2SAT 100
== END 2023-07-28 17:45 | disposition home or self-care (01) ==
LOC: ER 14:15
DX: G89.29 Other chronic pain (principal); M79.641 Pain in right hand; I10 Essential (primary) hypertension; I48.91 Unspecified atrial fibrillation; J45.909 Unspecified asthma, uncomplicated; K21.9 Gastro-esophageal reflux disease without esophagitis; F32.A Depression, unspecified; Z79.899 Other long term (current) drug therapy; Z79.4 Long term (current) use of insulin; Z60.2 Problems related to living alone; Z88.0 Allergy status to penicillin; Z88.1 Allergy status to other antibiotic agents
CPT/HCPCS: 73030-TC; 73110; 73130-TC

== ENCOUNTER 2023-09-24 17:57 | Emergency (ER) | payer OTHER ==
[~2023-09-24] VITALS: Ht 180.3 cm; Wt 147.4 kg
[~2023-09-24 17:57] MED LIST changes: +KETO10TA2 PO
[2023-09-24 18:21] VITALS: BP 121/69; TEMP 98.6; O2SAT 98
[2023-09-24] MEDS ORDERED: KETOROLAC TROMETHAMINE INJ 30 MG/ML VIAL ONE (19:09)
[2023-09-24] MEDS: KETOROLAC TROMETHAMINE INJ 30 MG/ML VIAL IM ONE (19:12)
[2023-09-24] MEDS: KETOROLAC TROMETHAMINE 10 MG TABLET PO PRN (19:25)
[2023-09-24] MEDS ORDERED: CYCL5TAB PO (19:30)
== END 2023-09-24 20:02 | disposition home or self-care (01) ==
LOC: ER 18:02
DX: M25.572 Pain in left ankle and joints of left foot (principal); Z76.0 Encounter for issue of repeat prescription; F41.9 Anxiety disorder, unspecified; F31.9 Bipolar disorder, unspecified; I10 Essential (primary) hypertension; I48.91 Unspecified atrial fibrillation; J45.909 Unspecified asthma, uncomplicated; K21.9 Gastro-esophageal reflux disease without esophagitis; E11.9 Type 2 diabetes mellitus without complications; Z88.0 Allergy status to penicillin; Z88.8 Allergy status to other drugs, medicaments and biological substances; Z60.2 Problems related to living alone; Z79.899 Other long term (current) drug therapy
CPT/HCPCS: 73610-TC; J1885

== ENCOUNTER 2023-10-06 17:50 | Emergency (ER) | payer OTHER ==
[~2023-10-06] VITALS: Ht 180.3 cm; Wt 158.8 kg
[2023-10-06 18:07] VITALS: BP 136/88; TEMP 98
[2023-10-06] MEDS ORDERED: HYDROCODONE/APAP 5/325MG TABLET ONE (18:33)
[2023-10-06] MEDS: HYDROCODONE/APAP 5/325MG TABLET PO ONE (18:37)
[2023-10-06] MEDS ORDERED: QUET50TA PO (19:41)
[2023-10-06] MEDS ORDERED: KETO10TA2 PO (19:41)
[2023-10-06 19:49] VITALS: O2SAT 97
== END 2023-10-06 19:49 | disposition home or self-care (01) ==
LOC: ER 17:54
DX: M25.521 Pain in right elbow (principal); M25.511 Pain in right shoulder; M25.531 Pain in right wrist; I10 Essential (primary) hypertension; I48.91 Unspecified atrial fibrillation; E11.9 Type 2 diabetes mellitus without complications; J45.909 Unspecified asthma, uncomplicated; F32.A Depression, unspecified; Z88.0 Allergy status to penicillin; Z88.8 Allergy status to other drugs, medicaments and biological substances; Z60.2 Problems related to living alone; Z79.4 Long term (current) use of insulin; Z79.899 Other long term (current) drug therapy
CPT/HCPCS: 73030-TC; 73080-TC; 73110

== ENCOUNTER 2023-10-14 19:48 | Emergency (ER) | payer OTHER ==
[~2023-10-14] VITALS: Ht 180.3 cm; Wt 149.7 kg
[2023-10-14 20:06] VITALS: TEMP 99.3
[2023-10-14] MEDS ORDERED: CYCLOBENZAPRINE 10 MG TABLET ONE (21:14)
[2023-10-14] MEDS: CYCLOBENZAPRINE 10 MG TABLET PO ONE (21:16)
[2023-10-14 21:30] VITALS: BP 138/98; O2SAT 98
== END 2023-10-14 21:30 | disposition home or self-care (01) ==
LOC: ER 19:53
DX: J81.1 Chronic pulmonary edema (principal); G89.29 Other chronic pain; M79.10 Myalgia, unspecified site; I10 Essential (primary) hypertension; I48.91 Unspecified atrial fibrillation; E11.9 Type 2 diabetes mellitus without complications; K21.9 Gastro-esophageal reflux disease without esophagitis; F32.A Depression, unspecified; Z88.0 Allergy status to penicillin; Z88.8 Allergy status to other drugs, medicaments and biological substances; Z60.2 Problems related to living alone; Z79.899 Other long term (current) drug therapy; Z79.4 Long term (current) use of insulin
CPT/HCPCS: 71045-TC

== ENCOUNTER 2023-11-24 20:30 | Emergency (ER) | payer OTHER ==
[~2023-11-24] VITALS: Ht 180.3 cm; Wt 158.8 kg
[2023-11-24 21:50] VITALS: BP 143/86; TEMP 98.1; O2SAT 98
[2023-11-25] MEDS ORDERED: KETOROLAC TROMETHAMINE 15 MG/ML VIAL ONE (01:59)
[2023-11-25] MEDS: KETOROLAC TROMETHAMINE 15 MG/ML VIAL IM ONE (02:03)
[2023-11-25] MEDS ORDERED: CYCL5TAB PO (04:17)
== END 2023-11-25 05:51 | disposition home or self-care (01) ==
LOC: ER 20:33
DX: M54.50 Low back pain, unspecified (principal); M54.6 Pain in thoracic spine; I10 Essential (primary) hypertension; I48.91 Unspecified atrial fibrillation; J45.909 Unspecified asthma, uncomplicated; K21.9 Gastro-esophageal reflux disease without esophagitis; F32.A Depression, unspecified; Z79.4 Long term (current) use of insulin; Z98.890 Other specified postprocedural states; Z79.899 Other long term (current) drug therapy; Z60.2 Problems related to living alone; Z88.0 Allergy status to penicillin
CPT/HCPCS: 72128-TC; 72131-TC; J1885

== ENCOUNTER 2023-12-11 22:10 | Emergency (ER) | payer OTHER ==
[~2023-12-11] VITALS: Ht 180.3 cm; Wt 158.8 kg
[2023-12-11 22:46] VITALS: TEMP 98.2
[2023-12-11] MEDS ORDERED: HYDROCODONE/APAP 5/325MG TABLET ONE (23:14)
[2023-12-11] MEDS ORDERED: CYCLOBENZAPRINE 10 MG TABLET ONE (23:18)
[2023-12-11] MEDS ORDERED: MORPHINE SULFATE INJ 2 MG/ML DISP.SYRIN ONE (23:18)
[2023-12-11] MEDS: HYDROCODONE/APAP 5/325MG TABLET PO ONE (23:24)
[2023-12-11] MEDS: CYCLOBENZAPRINE 10 MG TABLET PO ONE (23:24)
[2023-12-11] MEDS: MORPHINE SULFATE INJ 2 MG/ML DISP.SYRIN IM ONE (23:25)
[2023-12-12] MEDS ORDERED: CYCL15CA23 PO (00:11)
[2023-12-12 00:36] VITALS: BP 131/89; O2SAT 99
== END 2023-12-12 00:36 | disposition home or self-care (01) ==
LOC: ER 22:12
DX: M25.561 Pain in right knee (principal); M79.672 Pain in left foot; I10 Essential (primary) hypertension; I48.91 Unspecified atrial fibrillation; E11.9 Type 2 diabetes mellitus without complications; K21.9 Gastro-esophageal reflux disease without esophagitis; G56.00 Carpal tunnel syndrome, unspecified upper limb; F32.A Depression, unspecified; F19.10 Other psychoactive substance abuse, uncomplicated; I82.409 Acute embolism and thrombosis of unspecified deep veins of unspecified lower extremity; J44.9 Chronic obstructive pulmonary disease, unspecified; Z88.0 Allergy status to penicillin; Z88.1 Allergy status to other antibiotic agents; Z60.2 Problems related to living alone; W01.0XXA Fall on same level from slipping, tripping and stumbling without subsequent striking against object, initial encounter; Y93.89 Activity, other specified; Y92.89 Other specified places as the place of occurrence of the external cause; Y99.8 Other external cause status
CPT/HCPCS: 99284; 96372; 73620; 73564; J2270

== ENCOUNTER 2024-01-22 15:37 | Emergency (ER) | payer OTHER ==
[~2024-01-22] VITALS: Ht 180.3 cm; Wt 158.8 kg
[~2024-01-22 15:37] MED LIST changes: +CYCL15CA23 PO
[2024-01-22 18:27] VITALS: BP 126/76; TEMP 97.8; O2SAT 99
== END 2024-01-22 18:28 | disposition home or self-care (01) ==
LOC: ER 15:48
DX: S30.91XA Unspecified superficial injury of lower back and pelvis, initial encounter (principal); I10 Essential (primary) hypertension; E11.9 Type 2 diabetes mellitus without complications; J45.909 Unspecified asthma, uncomplicated; K21.9 Gastro-esophageal reflux disease without esophagitis; G56.00 Carpal tunnel syndrome, unspecified upper limb; F32.A Depression, unspecified; E66.9 Obesity, unspecified; I48.91 Unspecified atrial fibrillation; F19.10 Other psychoactive substance abuse, uncomplicated; Z88.8 Allergy status to other drugs, medicaments and biological substances; Z68.42 Body mass index [BMI] 45.0-49.9, adult; Z88.0 Allergy status to penicillin; Z60.2 Problems related to living alone; X58.XXXA Exposure to other specified factors, initial encounter; Y93.89 Activity, other specified; Y92.89 Other specified places as the place of occurrence of the external cause; Y99.8 Other external cause status

== ENCOUNTER 2024-03-16 18:37 | Emergency (ER) | payer OTHER ==
[~2024-03-16] VITALS: Ht 180.3 cm; Wt 136.1 kg
--- NOTE | 2024-03-16 19:39 | NUR ---
Xray at bedside
--- NOTE | 2024-03-16 20:30 | NUR ---
Patient discharged to home in stable condition. Written and verbal after care instructions given. Patient verbalizes understanding of instruction.
[2024-03-16] MEDS ORDERED: CYCL10TA9 PO (20:36)
[2024-03-16 23:30] VITALS: BP 149/103; TEMP 97.9; O2SAT 95
== END 2024-03-16 23:30 | disposition home or self-care (01) ==
LOC: ER 18:40
DX: S90.32XA Contusion of left foot, initial encounter (principal); G89.29 Other chronic pain; M54.9 Dorsalgia, unspecified; I10 Essential (primary) hypertension; L98.429 Non-pressure chronic ulcer of back with unspecified severity; E11.9 Type 2 diabetes mellitus without complications; K21.9 Gastro-esophageal reflux disease without esophagitis; J45.909 Unspecified asthma, uncomplicated; I48.91 Unspecified atrial fibrillation; G56.00 Carpal tunnel syndrome, unspecified upper limb; F32.A Depression, unspecified; F19.10 Other psychoactive substance abuse, uncomplicated; Z88.0 Allergy status to penicillin; Z88.8 Allergy status to other drugs, medicaments and biological substances; Z60.2 Problems related to living alone; Z99.3 Dependence on wheelchair; W23.0XXA Caught, crushed, jammed, or pinched between moving objects, initial encounter; Y93.89 Activity, other specified; Y92.89 Other specified places as the place of occurrence of the external cause; Y99.8 Other external cause status
CPT/HCPCS: 73610-TC; 73630-TC

== ENCOUNTER 2024-04-02 01:21 | Emergency (ER) | payer OTHER ==
[~2024-04-02] VITALS: Ht 165.1 cm; Wt 142.9 kg
[2024-04-02] MEDS: CLINDAMYCIN PHOSPHATE IV 600 MG/4 ML VIAL IV ONE (04:00)
[2024-04-02] MEDS ORDERED: CLINDAMYCIN 900 MG/6 ML VIAL ONE (04:06)
[2024-04-02 04:09] LABS: BASOPHILS % (AUTO) 0.6 % (0.0-2.0); EOSINOPHILS # (AUTO) 0.1 K/uL (0.0-0.7); EOSINOPHILS % (AUTO) 2.3 % (0.0-6.0); HEMATOCRIT 37 % (33-45); HEMOGLOBIN 11.8 g/dL (11.5-14.8); LYMPHOCYTES # (AUTO) 1.4 K/uL (0.8-4.8); MEAN CORPUSCULAR HEMOGLOBIN 27 PG (26.0-33.0); MEAN CORPUSCULAR HGB CONC 32 g/dl (31.0-36.0); MEAN CORPUSCULAR VOLUME 84 fL (82-100); MONOCYTES # (AUTO) 0.5 K/uL (0.1-1.30); MONOCYTES % (AUTO) 9.8 % (2.0-12.0); NEUTROPHILS # (AUTO) 2.9 K/uL (1.8-8.9); NEUTROPHILS % (AUTO) 59.3 % (43.0-81.0); PLATELET COUNT (AUTO) 175 K/uL (150-450); RED BLOOD CELL COUNT(AUTO) 4.38 MIL/uL (4.0-5.2); RED CELL DISTRIBUTION WIDTH 15.4 % (11.5-15.0); WHITE BLOOD COUNT (AUTO) 4.9 K/uL (4.3-11.0)
[2024-04-02 04:29] LABS: CALCIUM, SERUM 10.1 mg/dL (8.5-10.1); CREATININE 1.2 mg/dL (0.6-1.3); POTASSIUM 5.1 mmol/L (3.5-5.1)
[2024-04-02 04:35] LABS: ALBUMIN 3.2 g/dL (3.4-5.0); BILIRUBIN,TOTAL 0.3 mg/dL (0.2-1.0); TOTAL PROTEIN, SERUM 7.4 g/dL (6.4-8.2)
[2024-04-02] MEDS ORDERED: INSULIN REGULAR, HUMAN 100 UNIT/ML 10 ML VIAL ONE (04:43)
[2024-04-02] MEDS: INSULIN REGULAR, HUMAN 100 UNIT/ML 10 ML VIAL IV ONE (04:46)
[2024-04-02] MEDS: IV NS 0.9% 1,000 ML IV ONE (04:53)
[2024-04-02 10:06] VITALS: BP 128/79; TEMP 98.4; O2SAT 98
== END 2024-04-02 10:07 | disposition short-term general hospital (02) ==
LOC: ER 01:24
DX: L03.312 Cellulitis of back [any part except buttock and flank] (principal); E11.65 Type 2 diabetes mellitus with hyperglycemia; I10 Essential (primary) hypertension; J45.909 Unspecified asthma, uncomplicated; I48.91 Unspecified atrial fibrillation; K21.9 Gastro-esophageal reflux disease without esophagitis; G56.00 Carpal tunnel syndrome, unspecified upper limb; F32.A Depression, unspecified; G89.29 Other chronic pain; F19.10 Other psychoactive substance abuse, uncomplicated; Z88.0 Allergy status to penicillin; Z88.8 Allergy status to other drugs, medicaments and biological substances; Z60.2 Problems related to living alone
CPT/HCPCS: 99285; 96374; 96361; 96375; 85025; 87040; 82010; 36415; 80053; 82962; J3490; J1815

== ENCOUNTER 2024-04-30 17:19 | Emergency (ER) | payer OTHER ==
[~2024-04-30] VITALS: Ht 180.3 cm; Wt 142.9 kg
[2024-04-30] MEDS ORDERED: TRAMADOL HCL 50 MG TABLET ONE (19:22)
[2024-04-30] MEDS ORDERED: BACLOFEN (10 MG) 10 MG TABLET ONE (19:22)
[2024-04-30] MEDS: BACLOFEN (10 MG) 10 MG TABLET PO ONE (19:24)
[2024-04-30] MEDS: TRAMADOL HCL 50 MG TABLET PO ONE (19:25)
[2024-05-01 02:23] VITALS: BP 137/121; TEMP 98.8; O2SAT 97
== END 2024-05-01 02:24 | disposition home or self-care (01) ==
LOC: ER 18:37
DX: G89.29 Other chronic pain (principal); M79.642 Pain in left hand; M79.641 Pain in right hand; M54.59 Other low back pain; M25.562 Pain in left knee; M25.561 Pain in right knee; E11.9 Type 2 diabetes mellitus without complications; F32.A Depression, unspecified; I10 Essential (primary) hypertension; I48.91 Unspecified atrial fibrillation; G56.00 Carpal tunnel syndrome, unspecified upper limb; J45.909 Unspecified asthma, uncomplicated; F19.10 Other psychoactive substance abuse, uncomplicated; K21.9 Gastro-esophageal reflux disease without esophagitis; Z79.4 Long term (current) use of insulin; Z79.52 Long term (current) use of systemic steroids; Z79.899 Other long term (current) drug therapy; Z86.718 Personal history of other venous thrombosis and embolism; Z88.0 Allergy status to penicillin; Z88.1 Allergy status to other antibiotic agents; Z96.659 Presence of unspecified artificial knee joint; Z60.2 Problems related to living alone; V49.69XA Unspecified car occupant injured in collision with other motor vehicles in traffic accident, initial encounter; Y93.89 Activity, other specified; Y92.488 Other paved roadways as the place of occurrence of the external cause; Y99.8 Other external cause status

== ENCOUNTER 2024-07-16 15:52 | Emergency (ER) | payer OTHER ==
[~2024-07-16] VITALS: Ht 180.3 cm; Wt 158.8 kg
[2024-07-16 16:17] VITALS: BP 150/90; TEMP 98
[2024-07-16] MEDS ORDERED: LIDO30AD10 TP (17:13)
[2024-07-16] MEDS ORDERED: CYCL5TAB PO (17:13)
[2024-07-16] MEDS ORDERED: LIDOCAINE 5% (PATCH) 1 EA PATCH TP ONE (17:20)
[2024-07-16] MEDS ORDERED: CYCLOBENZAPRINE 10 MG TABLET ONE (17:21)
[2024-07-16] MEDS ORDERED: HYDROMORPHONE INJ 2 MG/ML DISP.SYRIN ONE (17:21)
[2024-07-16] MEDS: HYDROMORPHONE INJ 2 MG/ML DISP.SYRIN IM ONE (17:35)
[2024-07-16] MEDS: CYCLOBENZAPRINE 10 MG TABLET PO ONE (17:37)
[2024-07-16] MEDS: LIDOCAINE 5% (PATCH) 1 EA PATCH TP SCH (17:38)
[2024-07-16 17:57] VITALS: O2SAT 99
== END 2024-07-16 17:58 | disposition home or self-care (01) ==
LOC: ER 16:44
DX: G89.29 Other chronic pain (principal); M54.50 Low back pain, unspecified; E11.9 Type 2 diabetes mellitus without complications; F32.A Depression, unspecified; I10 Essential (primary) hypertension; I48.91 Unspecified atrial fibrillation; K21.9 Gastro-esophageal reflux disease without esophagitis; E66.9 Obesity, unspecified; F19.10 Other psychoactive substance abuse, uncomplicated; Z68.42 Body mass index [BMI] 45.0-49.9, adult; Z76.0 Encounter for issue of repeat prescription; Z79.4 Long term (current) use of insulin; Z79.52 Long term (current) use of systemic steroids; Z79.899 Other long term (current) drug therapy; Z86.718 Personal history of other venous thrombosis and embolism; Z88.0 Allergy status to penicillin; Z88.1 Allergy status to other antibiotic agents; Z96.659 Presence of unspecified artificial knee joint; Z99.3 Dependence on wheelchair; Z87.09 Personal history of other diseases of the respiratory system; Z87.39 Personal history of other diseases of the musculoskeletal system and connective tissue; Z60.2 Problems related to living alone
CPT/HCPCS: 99283; 96372; J1171

== ENCOUNTER 2024-11-12 18:36 | Emergency (ER) | payer OTHER ==
[~2024-11-12] VITALS: Ht 180.3 cm; Wt 154.2 kg
[2024-11-12 19:14] LABS: BASOPHILS % (AUTO) 0.5 % (0.0-2.0); EOSINOPHILS # (AUTO) 0.2 K/uL (0.0-0.7); EOSINOPHILS % (AUTO) 4.6 % (0.0-6.0); HEMATOCRIT 38 % (33-45); HEMOGLOBIN 12.2 g/dL (11.5-14.8); LYMPHOCYTES # (AUTO) 1.4 K/uL (0.8-4.8); LYMPHOCYTES % (AUTO) 26.7 % (20.0-44.0); MEAN CORPUSCULAR HEMOGLOBIN 27 PG (26.0-33.0); MEAN CORPUSCULAR HGB CONC 33 g/dl (31.0-36.0); MEAN CORPUSCULAR VOLUME 83 fL (82-100); MONOCYTES # (AUTO) 0.5 K/uL (0.1-1.30); NEUTROPHILS % (AUTO) 59.2 % (43.0-81.0); PLATELET COUNT (AUTO) 164 K/uL (150-450); RED CELL DISTRIBUTION WIDTH 14.5 % (11.5-15.0); WHITE BLOOD COUNT (AUTO) 5.1 K/uL (4.3-11.0)
[2024-11-12 19:28] LABS: ALANINE AMINOTRANSFERASE 22 U/L (12-78); ALKALINE PHOSPHATASE 132 U/L (46-116); ASPARTATE AMINOTRANSFERASE 17 U/L (15-37); BILIRUBIN,DIRECT 0.1 mg/dL (0.0-0.2); BILIRUBIN,TOTAL 0.4 mg/dL (0.2-1.0); CALCIUM, SERUM 10.3 mg/dL (8.5-10.1); CARBON DIOXIDE 27 mmol/L (21-32); CHLORIDE 101 mmol/L (98-107); CREATININE 0.9 mg/dL (0.6-1.3); LIPASE 14 U/L (16-77); POTASSIUM 4.3 mmol/L (3.5-5.1); SODIUM SERUM 137 mmol/L (136-145); TOTAL PROTEIN, SERUM 7.7 g/dL (6.4-8.2); UREA NITROGEN, BLOOD 12 mg/dL (7-18)
[2024-11-12 19:29] LABS: GLUCOSE 415 mg/dL (74-106)
[2024-11-12] MEDS: KETOROLAC TROMETHAMINE INJ 30 MG/ML VIAL IV ONE (19:30)
[2024-11-12] MEDS: ONDANSETRON HCL/PF - ER 4 MG/2 ML VIAL IV ONE (19:30)
[2024-11-12] MEDS ORDERED: CYCLOBENZAPRINE 10 MG TABLET ONE (19:48)
[2024-11-12] MEDS: CYCLOBENZAPRINE 10 MG TABLET PO ONE (19:49)
[2024-11-12] MEDS: INSULIN REGULAR, HUMAN 100 UNIT/ML 10 ML VIAL SQ ONE (20:38)
[2024-11-12 21:57] VITALS: BP 110/77; TEMP 98.1; O2SAT 96
== END 2024-11-12 21:58 | disposition home or self-care (01) ==
LOC: ER 18:37
DX: R10.84 Generalized abdominal pain (principal); R11.0 Nausea; I11.9 Hypertensive heart disease without heart failure; E11.9 Type 2 diabetes mellitus without complications; E66.9 Obesity, unspecified; F32.A Depression, unspecified; G89.29 Other chronic pain; I48.91 Unspecified atrial fibrillation; Z79.4 Long term (current) use of insulin; Z79.52 Long term (current) use of systemic steroids; Z79.899 Other long term (current) drug therapy; Z86.718 Personal history of other venous thrombosis and embolism; Z88.0 Allergy status to penicillin; Z88.1 Allergy status to other antibiotic agents; Z96.659 Presence of unspecified artificial knee joint
CPT/HCPCS: 99285; 74176; 96372; 93005; 85025; 80048; 83690; 80076; 36415; 84484; 82962; J1815; J2405

== ENCOUNTER 2025-01-17 17:47 | Emergency (ER) | payer OTHER ==
[~2025-01-17] VITALS: Ht 175.3 cm; Wt 111.1 kg
[2025-01-17] MEDS ORDERED: POTA20TA83 PO (20:59)
[2025-01-17] MEDS ORDERED: FURO-144 PO (20:59)
[2025-01-17 21:17] VITALS: BP 142/89; TEMP 98.8; O2SAT 99
== END 2025-01-17 21:17 | disposition home or self-care (01) ==
LOC: ER 17:51
DX: R60.0 Localized edema (principal); E11.9 Type 2 diabetes mellitus without complications; E66.9 Obesity, unspecified; F32.A Depression, unspecified; G89.29 Other chronic pain; I10 Essential (primary) hypertension; I48.91 Unspecified atrial fibrillation; J45.909 Unspecified asthma, uncomplicated; K21.9 Gastro-esophageal reflux disease without esophagitis; F19.10 Other psychoactive substance abuse, uncomplicated; Z79.4 Long term (current) use of insulin; Z79.52 Long term (current) use of systemic steroids; Z79.899 Other long term (current) drug therapy; Z86.718 Personal history of other venous thrombosis and embolism; Z88.0 Allergy status to penicillin; Z88.1 Allergy status to other antibiotic agents; Z96.659 Presence of unspecified artificial knee joint; Z87.39 Personal history of other diseases of the musculoskeletal system and connective tissue; Z60.2 Problems related to living alone; Z68.36 Body mass index [BMI] 36.0-36.9, adult

== ENCOUNTER 2025-02-02 16:48 | Emergency (ER) | payer MEDICAID, OTHER ==
[~2025-02-02] VITALS: Ht 175.3 cm; Wt 113.4 kg
[~2025-02-02 16:48] MED LIST changes: +FURO-144 PO; +POTA20TA83 PO
[2025-02-02 17:00] VITALS: TEMP 98.1
[2025-02-02] MEDS: ACETAMINOPHEN ES 500 MG TABLET PO ONE (17:26)
[2025-02-02 17:47] VITALS: BP 125/84; O2SAT 98
== END 2025-02-02 17:48 | disposition home or self-care (01) ==
LOC: ER 16:53
DX: M79.604 Pain in right leg (principal); G89.29 Other chronic pain; Z76.5 Malingerer [conscious simulation]; E11.9 Type 2 diabetes mellitus without complications; E66.9 Obesity, unspecified; F32.A Depression, unspecified; I10 Essential (primary) hypertension; I48.91 Unspecified atrial fibrillation; K21.9 Gastro-esophageal reflux disease without esophagitis; Z79.4 Long term (current) use of insulin; Z79.52 Long term (current) use of systemic steroids; Z79.899 Other long term (current) drug therapy; Z86.718 Personal history of other venous thrombosis and embolism; Z88.0 Allergy status to penicillin; Z88.1 Allergy status to other antibiotic agents; Z96.659 Presence of unspecified artificial knee joint; Z68.36 Body mass index [BMI] 36.0-36.9, adult; W20.8XXA Other cause of strike by thrown, projected or falling object, initial encounter; Y93.89 Activity, other specified; Y92.89 Other specified places as the place of occurrence of the external cause; Y99.8 Other external cause status
CPT/HCPCS: 73630-TC

== ENCOUNTER 2025-03-06 18:43 | Emergency (ER) | payer MEDICAID ==
[~2025-03-06] VITALS: Ht 175.3 cm; Wt 113.4 kg
[2025-03-06 19:02] VITALS: TEMP 97.9
[2025-03-06 21:21] VITALS: BP 115/73; O2SAT 94
[2025-03-06] MEDS ORDERED: CYCLOBENZAPRINE 10 MG TABLET ONE ×2 (21:54)
[2025-03-06] MEDS: CYCLOBENZAPRINE 10 MG TABLET PO ONE (21:57)
[2025-03-06] MEDS ORDERED: CYCL5TAB PO (22:33)
[2025-03-06] MEDS ORDERED: HYDR-4275 PO (22:33)
[2025-03-06] MEDS ORDERED: HYDROCODONE/APAP 5/325MG TABLET ONE (22:49)
[2025-03-06] MEDS: HYDROCODONE/APAP 5/325MG TABLET PO ONE (22:52)
== END 2025-03-06 23:01 | disposition home or self-care (01) ==
LOC: ER 18:47
DX: M25.511 Pain in right shoulder (principal); M79.641 Pain in right hand; I10 Essential (primary) hypertension; E11.9 Type 2 diabetes mellitus without complications; F32.A Depression, unspecified; G89.29 Other chronic pain; K21.9 Gastro-esophageal reflux disease without esophagitis; E66.9 Obesity, unspecified; I48.91 Unspecified atrial fibrillation; Z86.718 Personal history of other venous thrombosis and embolism; Z79.4 Long term (current) use of insulin; Z79.52 Long term (current) use of systemic steroids; Z79.899 Other long term (current) drug therapy; Z88.0 Allergy status to penicillin; Z88.1 Allergy status to other antibiotic agents; Z60.2 Problems related to living alone; Z96.659 Presence of unspecified artificial knee joint; Z68.36 Body mass index [BMI] 36.0-36.9, adult
CPT/HCPCS: 73030-TC; 73080-TC; 73110; 73130-TC

== ENCOUNTER 2025-03-20 19:58 | Emergency (ER) | payer MEDICARE, OTHER ==
[~2025-03-20] VITALS: Ht 180.3 cm; Wt 158.8 kg
[~2025-03-20 19:58] MED LIST changes: +HYDR-4275 PO
[2025-03-20] MEDS ORDERED: ACETAMINOPHEN ES 500 MG TABLET ONE (22:42)
[2025-03-20] MEDS ORDERED: NAPROXEN 250 MG TABLET ONE (22:42)
[2025-03-20] MEDS: ACETAMINOPHEN ES 500 MG TABLET PO ONE (22:44)
[2025-03-20] MEDS: NAPROXEN 250 MG TABLET PO ONE (22:44)
[2025-03-20 23:13] VITALS: BP 160/95; TEMP 98; O2SAT 95
== END 2025-03-20 23:13 | disposition home or self-care (01) ==
LOC: ER 20:02
DX: M25.512 Pain in left shoulder (principal); M25.511 Pain in right shoulder; E11.9 Type 2 diabetes mellitus without complications; I11.9 Hypertensive heart disease without heart failure; J44.89 Other specified chronic obstructive pulmonary disease; I48.91 Unspecified atrial fibrillation; F32.A Depression, unspecified; Z79.4 Long term (current) use of insulin; Z79.52 Long term (current) use of systemic steroids; Z86.718 Personal history of other venous thrombosis and embolism; Z88.0 Allergy status to penicillin; Z88.1 Allergy status to other antibiotic agents; Z79.899 Other long term (current) drug therapy
CPT/HCPCS: 73030-TC

== ENCOUNTER 2025-05-17 18:30 | Emergency (ER) | payer MEDICARE, OTHER ==
[~2025-05-17] VITALS: Ht 180.3 cm; Wt 149.7 kg
[2025-05-17 19:04] VITALS: TEMP 97.9
[2025-05-17] MEDS: ACETAMINOPHEN 325 MG TABLET PO ONE (20:14)
[2025-05-17] MEDS ORDERED: LIDOCAINE 5% (PATCH) 1 EA PATCH TP ONE (20:16)
[2025-05-17] MEDS: LIDOCAINE 5% (PATCH) 1 EA PATCH TP ONE (20:19)
[2025-05-17 20:27] LABS: PLATELET COUNT (AUTO) 215 K/uL (150-450); RED BLOOD CELL COUNT(AUTO) 4.45 MIL/uL (4.0-5.2); RED CELL DISTRIBUTION WIDTH 15.3 % (11.5-15.0); WHITE BLOOD COUNT (AUTO) 5.1 K/uL (4.3-11.0)
[2025-05-17 20:39] LABS: CALCIUM, SERUM 9.7 mg/dL (8.5-10.1); CREATININE 1.0 mg/dL (0.6-1.3); SODIUM SERUM 139 mmol/L (136-145); UREA NITROGEN, BLOOD 21 mg/dL (7-18)
[2025-05-17 20:53] LABS: ASPARTATE AMINOTRANSFERASE 23 U/L (15-37); NT-PRO BNP 8 pg/mL (0-125); TOTAL PROTEIN, SERUM 7.4 g/dL (6.4-8.2)
[2025-05-17] MEDS ORDERED: BENZONATATE 100 MG CAPSULE PO ONE (21:45)
[2025-05-17] MEDS ORDERED: CYCL5TAB PO (21:52)
[2025-05-17] MEDS ORDERED: QUET50TA PO (21:52)
[2025-05-17] MEDS: BENZONATATE 100 MG CAPSULE PO ONE (21:53)
[2025-05-17 21:59] VITALS: BP 154/79; O2SAT 98
[2025-05-17] MEDS ORDERED: BENZ-13 PO (22:03)
== END 2025-05-17 21:59 | disposition home or self-care (01) ==
LOC: ER 19:00
DX: R05.9 Cough, unspecified (principal); M25.511 Pain in right shoulder; I11.9 Hypertensive heart disease without heart failure; G89.29 Other chronic pain; E11.9 Type 2 diabetes mellitus without complications; E66.01 Morbid (severe) obesity due to excess calories; F32.A Depression, unspecified; I48.91 Unspecified atrial fibrillation; I70.0 Atherosclerosis of aorta; J44.89 Other specified chronic obstructive pulmonary disease; Z79.4 Long term (current) use of insulin; Z79.52 Long term (current) use of systemic steroids; Z79.899 Other long term (current) drug therapy; Z86.718 Personal history of other venous thrombosis and embolism; Z88.0 Allergy status to penicillin; Z88.1 Allergy status to other antibiotic agents; Z96.659 Presence of unspecified artificial knee joint; Z20.822 Contact with and (suspected) exposure to COVID-19
CPT/HCPCS: 36415; 71045-TC; 80048-TC; 80076-TC; 83880; 84484-TC; 85025-TC